=== PATIENT | male | born 1960 | race African-American/Black ===

== ENCOUNTER 2016-09-04 09:04 | Emergency (ER) | payer BC ==
[2005-03-20 19:04] VITALS: BP 172/107
[~2016-09-04] VITALS: Ht 188 cm; Wt 134.1 kg
[~2016-09-04 09:04] MED LIST: CEPHALEXIN500 M1 PO; HCTZ 25MG25 MG PO; INSULIN 70/3100 U/ML IJ; NEW B/P MED; NORCO 325 MG-51 TAB PO; NORVASC 10MG10 MG PO; NOVOLIN 70/30 710 ML SQ; PHENERGAN 25 TA25 MG PO
[2016-09-04 09:11] VITALS: TEMP 97.7
[2016-09-04 09:35] LABS: BASO % 0.6 % (0.0-2.0); EOS # 0.2 (0.0-0.7); EOS % 2.9 % (0-4.0); GRAN # 2.9 (1.4-6.5); GRAN % 45.1 % (42.2-75.2); HEMATOCRIT 45.8 % (42.0-52.0); HEMOGLOBIN 14.9 g/dl (13.5-18.0); LYMPH # 2.3 (1.2-3.4); LYMPH % 35.8 % (20.0-51.0); MEAN CELL VOLUME 80 fl (80.0-100.0); MEAN CORPUSCULAR HEMOGLOBIN 26 pg (27.0-31.0); MEAN CORPUSCULAR HGB CONC 33 g/dl (33.0-37.0); MEAN PLATELET VOLUME 9.5 fl (7.4-10.4); PLATELET COUNT 354 K/mm3 (130-400); RED BLOOD COUNT 5.74 M/mm3 (4.20-5.60); REDCELL DISTRIBUTION WIDTH-CV 13.5 % (11.5-14.5); WHITE BLOOD COUNT 6.5 K/mm3 (4.8-10.8)
[2016-09-04 09:41] LABS: ADJUSTED CALCIUM 10.1 mg/dL (8.4-10.2); BILIRUBIN,TOTAL 1.1 mg/dL (0.0-1.0); CALCIUM 10.1 mg/dL (8.4-10.2); CREATININE, serum 1.82 mg/dL (0.66-1.25); MAGNESIUM 1.7 mg/dL (1.6-2.3); PHOSPHOROUS 4.4 mg/dL (2.5-4.5); POTASSIUM 3.7 mmol/L (3.4-5.0); TOTAL PROTEIN 7.9 gm/dL (6.4-8.2)
[2016-09-04] MEDS ORDERED: ANTIVERT 25MG25 MG PO (09:50)
[2016-09-04] MEDS ORDERED: HCTZ 25MG TAB25 MG PO (09:52)
[2016-09-04] MEDS ORDERED: PREDNISONE20 MG PO (14:28)
[2016-09-04] MEDS ORDERED: VALTREX1 GM PO (14:28)
[2016-09-04 15:10] VITALS: BP 125/96; PULSE 81
[2016-09-07 12:44] LABS: ANGIOTENSIN CONVERTING ENZYME <5 U/L (8 - 53)
== END 2016-09-04 15:12 | disposition home or self-care (01) ==
LOC: COL.ER 09:04
PROVIDERS: Emergency Medicine
DX: G51.0 Bell's palsy (principal); E11.9 Type 2 diabetes mellitus without complications; I10 Essential (primary) hypertension; Z79.4 Long term (current) use of insulin; N28.9 Disorder of kidney and ureter, unspecified
CPT/HCPCS: J7030; J7512

== ENCOUNTER → 2017-09-27 | Outpatient (CLI) | payer BC ==
[~2017-09-27] MED LIST changes: +ANTIVERT 25MG25 MG PO; +HCTZ 25MG TAB25 MG PO; +PREDNISONE20 MG PO; +VALTREX1 GM PO
== END ==
LOC: COL.RAD 09:18
DX: N18.3 Chronic kidney disease, stage 3 (moderate) (principal)

== ENCOUNTER 2018-11-16 20:55 | Emergency (ER) | payer BC ==
[2005-03-20 19:04] VITALS: BP 172/107
[~2018-11-16] VITALS: Ht 185.4 cm; Wt 140.9 kg
[2018-11-16 21:05] VITALS: TEMP 97.9
[2018-11-16 21:36] LABS: BASO % 0.2 % (0.0-2.0); EOS # 0.1 (0.0-0.7); GRAN # 10.4 (1.4-6.5); GRAN % 86.4 % (42.2-75.2); HEMATOCRIT 40.2 % (42.0-52.0); LYMPH # 0.7 (1.2-3.4); LYMPH % 5.4 % (20.0-51.0); MEAN CELL VOLUME 83 fl (80.0-100.0); MEAN CORPUSCULAR HEMOGLOBIN 27 pg (27.0-31.0); MEAN CORPUSCULAR HGB CONC 32 g/dl (33.0-37.0); MEAN PLATELET VOLUME 9.8 fl (7.4-10.4); MONO # 0.8 (0.1-0.6); MONO % 6.5 % (1.7-9.3); PLATELET COUNT 275 K/mm3 (130-400); RED BLOOD COUNT 4.85 M/mm3 (4.20-5.60); REDCELL DISTRIBUTION WIDTH-CV 14.5 % (11.5-14.5)
[2018-11-16] MEDS ORDERED: APRESOLINE50 MG PO (21:43)
[2018-11-16] MEDS ORDERED: LASIX 20MG TABL20 MG PO (21:43)
[2018-11-16] MEDS ORDERED: HYTRIN 5MG C5 MG/CAP PO (21:44)
[2018-11-16] MEDS ORDERED: TOPROL XL 50MG50 MG PO (21:46)
[2018-11-16 21:48] LABS: ALANINE AMINOTRANSFERASE 24 U/L (21-72); ALBUMIN 4.2 gm/dL (3.5-5.0); ALKALINE PHOSPHATASE 107 U/L (50-136); ANION GAP 10 mmol/L (7-16); AST,SGOT 26 U/L (15-37); BILIRUBIN,TOTAL 0.7 mg/dL (0.0-1.0); BLOOD UREA NITROGEN 29 mg/dL (9-20); C-REACTIVE PROTEIN 0.7 mg/dL (0.0-0.9); CARBON DIOXIDE 25 mmol/L (22-30); CHLORIDE 103 mmol/L (98-107); CREATININE, serum 1.82 (0.66-1.25); GLUCOSE 214 mg/dL (74-106); LIPASE 79 U/L (23-300); POTASSIUM 3.7 mmol/L (3.4-5.0); SODIUM 139 mmol/L (137-145); TOTAL PROTEIN 7.9 gm/dL (6.4-8.2)
[2018-11-16 22:03] LABS: TROPONIN-I < 0.012 ng/mL (0.000-0.035)
[2018-11-16 22:36] LABS: COLLECTION METHOD CLEAN CATCH
[2018-11-16 22:42] LABS: MUCOUS Present /lpf; PH 7 (5-8); SQUAMOUS EPITHELIAL 0-2 /hpf; URINE APPEARANCE Clear; URINE BACTERIA Rare /hpf; URINE BILIRUBIN Negative (NEGATIVE); URINE BLOOD 1+ (NEGATIVE); URINE COLOR Straw; URINE GLUCOSE 3+ (NEGATIVE); URINE KETONE Trace (NEGATIVE); URINE LEUKOCYTE ESTERASE Negative (NEGATIVE); URINE NITRATE Negative (NEGATIVE); URINE PROTEIN(semi-quant) 2+ (NEGATIVE); URINE UROBILINOGEN Negative (NEGATIVE)
[2018-11-16] MEDS ORDERED: PHENERGAN 25 TA25 MG PO (23:51)
[2018-11-17 00:30] VITALS: BP 144/80; PULSE 100
== END 2018-11-17 00:30 | disposition home or self-care (01) ==
LOC: COL.ER 20:55
PROVIDERS: Emergency Medicine
DX: R11.2 Nausea with vomiting, unspecified (principal); R19.7 Diarrhea, unspecified; I12.9 Hypertensive chronic kidney disease with stage 1 through stage 4 chronic kidney disease, or unspecified chronic kidney disease; E11.22 Type 2 diabetes mellitus with diabetic chronic kidney disease; N18.9 Chronic kidney disease, unspecified; Z87.442 Personal history of urinary calculi; Z79.4 Long term (current) use of insulin
CPT/HCPCS: J1170; J2405; J2550; J7030

== ENCOUNTER 2020-09-22 03:32 | Inpatient (IN) | payer BC ==
[2020-09-22] VITALS (10 sets, daily range): BP systolic 158–197; BP diastolic 89–103; PULSE 83–105; TEMP 97.7–99.2
[~2020-09-22] VITALS: Ht 2.5 cm; Wt 138.6 kg
[~2020-09-22 03:32] MED LIST changes: +APRESOLINE50 MG PO; +HYTRIN 5MG C5 MG/CAP PO; +LASIX 20MG TABL20 MG PO; +TOPROL XL 50MG50 MG PO
[2020-09-22 04:13] LABS: BASO # 0.1 (0.0-0.2); BASO % 0.7 % (0.0-2.0); EOS # 0.2 (0.0-0.7); EOS % 1.9 % (0-4.0); GRAN # 5.1 (1.4-6.5); GRAN % 58.6 % (42.2-75.2); HEMATOCRIT 35.9 % (42.0-52.0); HEMOGLOBIN 11.3 g/dl (13.5-18.0); LYMPH # 2.5 (1.2-3.4); LYMPH % 28.8 % (20.0-51.0); MEAN CELL VOLUME 84 fl (80.0-100.0); MEAN CORPUSCULAR HEMOGLOBIN 26 pg (27.0-31.0); MEAN CORPUSCULAR HGB CONC 32 g/dl (33.0-37.0); MEAN PLATELET VOLUME 9.7 fl (7.4-10.4); MONO # 0.9 (0.1-0.6); MONO % 9.8 % (1.7-9.3); PLATELET COUNT 336 K/mm3 (130-400); RED BLOOD COUNT 4.29 M/mm3 (4.20-5.60); REDCELL DISTRIBUTION WIDTH-CV 14.4 % (11.5-14.5)
[2020-09-22 04:15] LABS: PROTHROMBIN TIME 10.7 SECONDS (9.7-12.8)
[2020-09-22 04:18] LABS: PARTIAL THROMBOPLASTIN TIME 34.7 SECONDS (26.0-37.0)
[2020-09-22 04:22] LABS: ALANINE AMINOTRANSFERASE 21 U/L (4-49); ALBUMIN 4.2 gm/dL (3.5-5.0); ALKALINE PHOSPHATASE 76 U/L (50-136); ANION GAP 11 mmol/L (7-16); AST,SGOT 29 U/L (15-37); BILIRUBIN,TOTAL 0.4 mg/dL (0.0-1.0); BLOOD UREA NITROGEN 55 mg/dL (9-20); CALCIUM 9.6 mg/dL (8.4-10.2); CARBON DIOXIDE 27 mmol/L (22-30); CHLORIDE 102 mmol/L (98-107); CREATININE, serum 3.38 (0.66-1.25); GLUCOSE 112 mg/dL (74-106); POTASSIUM 3.6 mmol/L (3.4-5.0); SODIUM 140 mmol/L (137-145); TOTAL PROTEIN 7.5 gm/dL (6.4-8.2)
[2020-09-22 04:34] LABS: TROPONIN-I < 0.012 ng/mL (0.000-0.035)
[2020-09-22] MEDS ORDERED: DIPROLENE AF GEL15GM TP (05:11)
[2020-09-22] MEDS ORDERED: NORVASC 10MG10 MG PO (05:11)
[2020-09-22] MEDS ORDERED: DUOBRII 0.01%-100 GM TP (05:12)
[2020-09-22] MEDS ORDERED: NORCO 325 MG-51 TAB PO (05:13)
[2020-09-22] MEDS ORDERED: APRESOLINE50 MG PO (05:13)
[2020-09-22] MEDS ORDERED: PRINZIDE 25 MG-1 TAB PO (05:14)
[2020-09-22] MEDS ORDERED: ROBAXIN 50500 MG/TAB PO (05:16)
[2020-09-22] MEDS ORDERED: IMITREX50 MG PO (05:17)
[2020-09-22] MEDS ORDERED: OTEZLA PO ×2 (05:17→06:05)
[2020-09-22] MEDS ORDERED: NOVOLIN 70/30 710 ML SQ (05:17)
[2020-09-22] MEDS ORDERED: LASIX 20MG TABL20 MG PO (06:03)
--- NOTE | 2020-09-22 07:00 | NUR ---
PT TEARFUL ABOUT CVA, PT HAVING TROUBLE GETTING OUT SOME WORDS, PT HAS R SIDED FACIAL DROOP, R SIDED WEAKNESS, PT AOX4, ASSESSMENT PERFORMED, NPO UNTIL SPEECH ASSESSMENT, NO OTHER NEEDS
[2020-09-22 08:32] LABS: MAGNESIUM 2.4 mg/dL (1.6-2.3); PHOSPHOROUS 5.1 mg/dL (2.5-4.5)
--- NOTE | 2020-09-22 09:18 | NUR ---
BRAYDON NOTIFIED OF NEPHROLOGY CONSULT
--- NOTE | 2020-09-22 10:04 | NUR ---
PT APPEARS TO HAVE MORE ISSUES WITH SPEECH BUT PHYSICAL STRENGTH IS THE SAME.
--- NOTE | 2020-09-22 10:22 | NUR ---
NOTIFIED DESTINI SAMPSON THAT PT SPEECH IS MORE SLURRED DURING CONVERSATION, STILL AOX4
--- NOTE | 2020-09-22 10:25 | NUR ---
Initial visit; Patient thanked Tube Blower for looking in on him and keeping him in Tube Blower's prayers.
[2020-09-22 10:37] LABS: COLLECTION METHOD CLEAN CATCH
[2020-09-22 10:44] LABS: PH 6 (5-8); SQUAMOUS EPITHELIAL None Seen /hpf; URINE APPEARANCE Clear; URINE BACTERIA None Seen /hpf; URINE BILIRUBIN Negative (NEGATIVE); URINE BLOOD Negative (NEGATIVE); URINE COLOR Straw; URINE GLUCOSE Negative (NEGATIVE); URINE KETONE Negative (NEGATIVE); URINE LEUKOCYTE ESTERASE Negative (NEGATIVE); URINE NITRATE Negative (NEGATIVE); URINE PROTEIN(semi-quant) 2+ (NEGATIVE); URINE RBC 0-2 /hpf; URINE UROBILINOGEN Negative (NEGATIVE)
[2020-09-22 10:47] LABS: BASO % 0.6 % (0.0-2.0); EOS # 0.1 (0.0-0.7); EOS % 0.9 % (0-4.0); GRAN # 4.8 (1.4-6.5); GRAN % 69.6 % (42.2-75.2); HEMOGLOBIN 10.8 g/dl (13.5-18.0); LYMPH # 1.4 (1.2-3.4); LYMPH % 19.8 % (20.0-51.0); MEAN CELL VOLUME 83 fl (80.0-100.0); MEAN CORPUSCULAR HEMOGLOBIN 27 pg (27.0-31.0); MEAN CORPUSCULAR HGB CONC 32 g/dl (33.0-37.0); MEAN PLATELET VOLUME 9.3 fl (7.4-10.4); MONO # 0.6 (0.1-0.6); MONO % 8.8 % (1.7-9.3); PLATELET COUNT 331 K/mm3 (130-400); RED BLOOD COUNT 4.08 M/mm3 (4.20-5.60); REDCELL DISTRIBUTION WIDTH-CV 14.2 % (11.5-14.5)
[2020-09-22 10:48] LABS: HEMATOCRIT 33.8 % (42.0-52.0)
--- NOTE | 2020-09-22 10:56 | NUR ---
PT TAKEN DOWN FOR MRI
--- NOTE | 2020-09-22 10:57 | NUR ---
RECIEVED PT MED FROM PT AND PLACED IT IN BAG WITH PT LABEL AND PLACED IN MED ROOM.
[2020-09-22 10:58] LABS: BILIRUBIN,TOTAL 0.5 mg/dL (0.0-1.0); CALCIUM 9.6 mg/dL (8.4-10.2); CREATININE, serum 3.06 (0.66-1.25); POTASSIUM 3.8 mmol/L (3.4-5.0); TOTAL PROTEIN 7.3 gm/dL (6.4-8.2)
--- NOTE | 2020-09-22 11:34 | NUR ---
PT RETURNED FROM MRI, NEURO CHECK PERFORMED,
--- NOTE | 2020-09-22 11:45 | NUR ---
RECIEVED CALL FROM RADIOLOGIST PT WAS POSITIVE FOR AN ACUTE STROKE, NOTIFIED ADRIÁN DUMONT
[2020-09-22] MEDS ORDERED: HUMULIN 70/3100 U/M1 SQ (11:54)
[2020-09-22] MEDS ORDERED: HYTRIN 5MG C5 MG/CAP PO (11:56)
--- NOTE | 2020-09-22 12:26 | NUR ---
PT REPORTING HE FEELS LIKE HE IS HAVING INCREASING WEAKNESS IN R PODIATRY ASSISTANT BUT WHEN SQUEEZING MY FINGERS IT DOES NOT FEEL LIKE THERE HAS BEEN A CHANGE SINCE OTHER NEURO CHECKS.
--- NOTE | 2020-09-22 13:29 | NUR ---
DR. MERCEDES AND ADRIÁN NOTIFIED OF NEW CHANGES WITH PT, PT HAS DEC MOVEMENT IN R ARM, BUILDING INSPECTOR WEAKER THAN IN AM, UNABLE TO TOUCH FINGERS TO THUMB, R ARM HAS SOME EFFORT AGAINST GRAVITY BUT UNABLE TO RAISE ARM ON HIS OWN
--- NOTE | 2020-09-22 14:03 | NUR ---
CT NOTIFIED OF STAT CT, SHE WAS CONCERNED ABOUT CREATININE, CALLED DR. MERCEDES BACK TO CONFIRM THAT HE WANTED THE CONTRAST, HE IS TRYING TO CONTACT DR. MARTINEZ BUT KU SAID SCANS WERE MORE IMPORTANT AT THIS TIME. PHYSICIAN WILL CALL ME BACK WITH FOR SURE ANSWER IN 5-10 MINUTES THEN WILL RETURN CALL TO CT.
--- NOTE | 2020-09-22 14:35 | NUR ---
Clerk Telegraph Service met with patient and his , Filomena (ph#[phone]) to discuss discharge planning. Patient lives in [place] with his and sees Dr. Lomeli for primary care. Patient obtains medications from [facility] with no difficulties and before his stroke, he did not use any DME. Patient is normally independent with ADLS. SW reviewed PT/OT recommendation for IPR. Patient and Filomena are open to having referral sent, but Filomena is worried about insurance coverage. Patient does not have Advance Directives but was interested in completing DPOA-HC. SW assisted patient in completing DPOA-HC and patient chose to designate his , Filomena and his daughter, Aure. ADAM and ETEHL Parks witnessed patient signature. ADAM provided original and copies to patient then placed copy in patient's chart. ADAM contacted REGINA Valdez Director to give referral and SW will continue to follow.
--- NOTE | 2020-09-22 16:20 | NUR ---
CALLED DR. MERCEDES TO ADVANCE DIET, HE SAID IT WAS FINE TO ADVANCE PER SPEECH RECOMMENDATIONS.
--- NOTE | 2020-09-22 17:21 | NUR ---
NOTIFIED DR. MERCEDES THAT HE CANT RN GYNECOLOGY WITH R HAND, HE SAID IT WAS TO BE EXPECTED IN NEXT 24-48 HOURS. PT STILL SLURRING SPEECH, PT NEEDS ASSISTANCE WITH URINAL, EDUCATED PT TO CALL, IN ROOM HELPED HIM CALL DIETARY FOR DINNER AND BREAKFAST, NECTAR THICK LIQUID AT BEDSIDE, CALL LIGHT ON L SIDE OF PATIENT, PT APPEARS EMBARASSED BY IDEA OF BEDPAN FOR A BM SINCE VERY WEAK
--- NOTE | 2020-09-22 20:00 | NUR ---
PATIENT WAS RECEIVED IN THE BOBBY FAIR IN BED.ASSESSMENT DONE,MEDS GIVEN.DENIES PAIN.NO NEEDS AT THIS TIME.
[2020-09-23] VITALS (15 sets, daily range): BP systolic 184–220; BP diastolic 82–124; PULSE 87–104; TEMP 97.8–98.6
--- NOTE | 2020-09-23 05:56 | NUR ---
PATIENT HAS SLEPT WELL AT NIGHT.ON A STROKE SCALE NOTHING HAS CHANGED FROM YESTERDAY'S ASSESSMENT.HAS WEAKNESS ON THE RIGHT SIDE AND FACIAL DROOPING.HE IS AOX4.IVFS ON GOOD PROGRESS.DENIES PAIN.NO OTHER NEEDS AT THIS TIME.
[2020-09-23 07:08] LABS: BASO % 0.5 % (0.0-2.0); EOS # 0.1 (0.0-0.7); EOS % 0.7 % (0-4.0); GRAN % 68.8 % (42.2-75.2); LYMPH # 1.6 (1.2-3.4); LYMPH % 21.6 % (20.0-51.0); MEAN CELL VOLUME 83 fl (80.0-100.0); MEAN CORPUSCULAR HEMOGLOBIN 26 pg (27.0-31.0); MEAN CORPUSCULAR HGB CONC 32 g/dl (33.0-37.0); MEAN PLATELET VOLUME 10.1 fl (7.4-10.4); MONO # 0.6 (0.1-0.6); MONO % 8.1 % (1.7-9.3); PLATELET COUNT 350 K/mm3 (130-400); RED BLOOD COUNT 4.16 M/mm3 (4.20-5.60); REDCELL DISTRIBUTION WIDTH-CV 14.5 % (11.5-14.5)
[2020-09-23 07:33] LABS: C-REACTIVE PROTEIN 0.7 mg/dL (0.0-0.9); CALCIUM 9.5 mg/dL (8.4-10.2); CHOLESTEROL RISK RATIO 3.1; CREATININE, serum 2.89 (0.66-1.25); POTASSIUM 3.8 mmol/L (3.4-5.0)
[2020-09-23 07:39] LABS: HEMATOCRIT 34.7 % (42.0-52.0)
--- NOTE | 2020-09-23 08:00 | NUR ---
PT AOX4, CANNOT MOVE R ARM, BP HIGH, STROKE SCALE PERFORMED, MEDICATIONS GIVEN, PT SWALLOWED WELL BUT GETS SOB AFTERWARDS. SPEECH ASSESSING AGAIN TODAY, PT SPEECH IS STILL SLURRED, R SIDED DROOP, PT TEARFUL ABOUT NOT BEING ABLE TO USE R ARM, NO OTHER NEEDS
--- NOTE | 2020-09-23 08:58 | NUR ---
UPDATED JAI GEORGES ON INC BP THROUGHT THE NIGHT AND IN AM AND ABOUT HIS SOB WITH SLEEPING.
--- NOTE | 2020-09-23 17:24 | NUR ---
PT STROKE SYMPTOMS STABLE THROUGHOUT DAY, ABLE TO RAISE R ARM BUT NOT JANITORIAL SERVICES SUPERVISOR WITH IT, MANNITOL DOSED X2 AND EDUCATED ON ITS PURPOSE, SECOND MRI DONE, PT IN ROOM, PROVIDED BED BATH AND HELPED PT BRUSH HIS TEETH, VITALS CHANGED TO Q4 PER PHYSICIAN ORDER, BS NOW ACHS PER PHSYICIAN ORDER, PT REPORTS GREATER STRENGTH IN LOWER EXTREMITIES, WALKED FARTHER WITH PT TODAY, SPEECH STILL RECOMMENDING NECTAR THICK LIQUIDS THROUGH THE WEEKEND. NO OTHER NEEDS AT THIS TIME.
--- NOTE | 2020-09-23 17:59 | NUR ---
PT ACCIDENTALLY PULLED OUT IV TRANSFERRING BACK TO BED. 20G STARTED IN RFA.
--- NOTE | 2020-09-23 18:27 | NUR ---
CALLED TO GET CPAP ORDER FROM [facility]LE[facility] GEORGES. PT EDUCATED ON PURPOSE OF CPAP AND HOW IT WORKS.
--- NOTE | 2020-09-23 20:15 | NUR ---
Pt currently resting in bed. Pt did pull his IV out by mistake. Pt blood pressure is currently 207/110. Will monitor blood pressure pt does have PRN medication but will give if numbers increase to the parameters medication will be given. Pt has is call light within reach and his bed is in lowest position.
--- NOTE | 2020-09-23 22:23 | NUR ---
This RT discussed CPAP with the patient. Explained the mask and settings. Pt states he has never had a sleep study and is refusing CPAP at this time. This RT encouraged that the patient look into getting an Overnight Polysomnograpy test on OP basis. Patient was also told that at any time he can call RT for intervention as ordered. Nurse was in the room and notified. RT to continue to monitor and evaluate patient.
[2020-09-24] VITALS (8 sets, daily range): BP systolic 157–217; BP diastolic 95–124; PULSE 87–101; TEMP 97.4–98.9
--- NOTE | 2020-09-24 01:49 | NUR ---
Pt is currently sleeping in bed. Pt did seem to be very restless before he received his night medications. Pt does have time where it sounds like he is not breathing well. But his oxygen is within normal limits. I have been closelsy monitoring pt. Respiratory therapy said she did not feel comfort putting pt on CPAP if he hadn't never been on a CPAP before. She wanted to be notified if I wanted her to check on him or noticed something abnormal. Pt has his call light within reach and his bed is in lowest position.
--- NOTE | 2020-09-24 02:30 | NUR ---
Pt currently lying in bed. Pt had a hard time getting comfortable in bed. Pt began to get very emotional as he exlained to me how he was doing fine and all this happened to him. He stated that he was not in any pain it's just very hard for him to deal with not being able to move his right side the way he wants. I encouraged the pt to call us if he needs help with anything, that this is what we are here for to help. Pt did get better once I helped him get positioned in a comfortable position. Pt said that it started when he neeed to use the urinal and it was hard for him with using just one hand. He did end up wetting his pants which I think made him feel bad. Pt has his call light within reach.
--- NOTE | 2020-09-24 06:00 | NUR ---
Pt has been much better this morning. Pt has no complaints at all this morning. He has his call light within reach and his bed is in lowest position.
[2020-09-24 07:45] LABS: BASO % 0.3 % (0.0-2.0); EOS # 0.1 (0.0-0.7); EOS % 0.8 % (0-4.0); GRAN # 6.2 (1.4-6.5); GRAN % 71.3 % (42.2-75.2); LYMPH # 1.5 (1.2-3.4); LYMPH % 17.5 % (20.0-51.0); MEAN CELL VOLUME 82 fl (80.0-100.0); MEAN CORPUSCULAR HEMOGLOBIN 26 pg (27.0-31.0); MEAN CORPUSCULAR HGB CONC 31 g/dl (33.0-37.0); MEAN PLATELET VOLUME 9.8 fl (7.4-10.4); MONO # 0.9 (0.1-0.6); MONO % 9.9 % (1.7-9.3); PLATELET COUNT 336 K/mm3 (130-400); RED BLOOD COUNT 4.25 M/mm3 (4.20-5.60); REDCELL DISTRIBUTION WIDTH-CV 14.6 % (11.5-14.5)
[2020-09-24 07:52] LABS: CALCIUM 9.7 mg/dL (8.4-10.2); CREATININE, serum 2.87 (0.66-1.25); POTASSIUM 3.7 mmol/L (3.4-5.0)
--- NOTE | 2020-09-24 09:43 | NUR ---
Pt awake and alert upon entry, sitting in the recliner, no C/O pain at this time. Shift assessments complete, left Pt call light in reach, sitting in the recliner.
--- NOTE | 2020-09-24 22:20 | NUR ---
Pt resting in bed. Pt has his call light within reach and his bed is in lowest position.
--- NOTE | 2020-09-25 02:24 | NUR ---
Pt currently awake in bed talking on the phone. He did request fresh water at this time and was given fresh water. He has his call light within reach and his bed is in lowest position. He has his call light within reach. Throughout the night he used the urinal.
[2020-09-25 03:37] VITALS: BP 196/102; PULSE 86; TEMP 98.3
--- NOTE | 2020-09-25 06:39 | NUR ---
Pt back in bed. Pt has had two loose stools during the night. Pt was assisted with getting cleaned up. Pt has his call light within reach.
[2020-09-25 07:03] LABS: BASO % 0.4 % (0.0-2.0); EOS # 0.1 (0.0-0.7); EOS % 1.1 % (0-4.0); GRAN # 6.3 (1.4-6.5); HEMOGLOBIN 11.4 g/dl (13.5-18.0); LYMPH % 21.4 % (20.0-51.0); MEAN CELL VOLUME 85 fl (80.0-100.0); MEAN CORPUSCULAR HEMOGLOBIN 27 pg (27.0-31.0); MEAN CORPUSCULAR HGB CONC 32 g/dl (33.0-37.0); MEAN PLATELET VOLUME 9.7 fl (7.4-10.4); MONO # 0.9 (0.1-0.6); MONO % 9.8 % (1.7-9.3); PLATELET COUNT 340 K/mm3 (130-400); RED BLOOD COUNT 4.28 M/mm3 (4.20-5.60); REDCELL DISTRIBUTION WIDTH-CV 14.5 % (11.5-14.5)
[2020-09-25 07:04] LABS: HEMATOCRIT 36.2 % (42.0-52.0)
[2020-09-25 07:22] LABS: CALCIUM 9.7 mg/dL (8.4-10.2); CREATININE, serum 3.36 (0.66-1.25); POTASSIUM 3.7 mmol/L (3.4-5.0)
[2020-09-25 08:00] VITALS: BP 218/121; PULSE 105; TEMP 98.1
--- NOTE | 2020-09-25 09:40 | NUR ---
Pt napping upon entry to room, easily awakened. No C/O pain at this time. Shift assessments complete, left Pt call light in reach, bed in lowest position, alarm on.
[2020-09-25 11:59] VITALS: BP 189/118; PULSE 116; TEMP 98.3
[2020-09-25 17:15] VITALS: BP 187/93; PULSE 89; TEMP 97.6
[2020-09-25 19:37] VITALS: BP 152/94; PULSE 84; TEMP 98.6
--- NOTE | 2020-09-25 20:00 | NUR ---
PATIENT WAS RECEIVED IN THE BOBBY CALM,ASSESSMENT DONE DUE MEDS GIVEN.DENIES PAIN NO NEEDS AT THIA TIME
[2020-09-26 00:18] VITALS: BP 168/80; PULSE 80; TEMP 98.5
[2020-09-26 05:12] VITALS: BP 174/91; PULSE 83; TEMP 98.3
--- NOTE | 2020-09-26 05:22 | NUR ---
PATIENT HAD A CALM NIGHT.REPORTED TO HAVE PULLED OUT IV WHEN ASLEEP.IV ACCESS RESTARTED ON RF IV NS INFUSING WELL.NO CONCERNS AT THIS TIME.
[2020-09-26 06:42] LABS: BASO # 0.1 (0.0-0.2); BASO % 0.7 % (0.0-2.0); EOS # 0.2 (0.0-0.7); GRAN # 4.8 (1.4-6.5); GRAN % 62.9 % (42.2-75.2); HEMOGLOBIN 10.5 g/dl (13.5-18.0); LYMPH # 1.8 (1.2-3.4); LYMPH % 24.2 % (20.0-51.0); MEAN CELL VOLUME 84 fl (80.0-100.0); MEAN CORPUSCULAR HEMOGLOBIN 26 pg (27.0-31.0); MEAN CORPUSCULAR HGB CONC 31 g/dl (33.0-37.0); MEAN PLATELET VOLUME 9.7 fl (7.4-10.4); MONO # 0.8 (0.1-0.6); MONO % 10.1 % (1.7-9.3); PLATELET COUNT 324 K/mm3 (130-400); RED BLOOD COUNT 4.03 M/mm3 (4.20-5.60); REDCELL DISTRIBUTION WIDTH-CV 14.2 % (11.5-14.5)
[2020-09-26 06:52] LABS: CALCIUM 9.3 mg/dL (8.4-10.2); CREATININE, serum 3.81 (0.66-1.25); HEMATOCRIT 33.7 % (42.0-52.0); POTASSIUM 3.6 mmol/L (3.4-5.0)
--- NOTE | 2020-09-26 07:00 | NUR ---
Report with ETHEL Duke. Pt resting in bed with eyes closed, resp even and unlabored.
[2020-09-26 08:09] VITALS: BP 170/110; PULSE 88; TEMP 98.4
--- NOTE | 2020-09-26 08:45 | NUR ---
Assessment complete. Pt resting in bed after being cleaned from incontinent stool. Pt reports loose stools today and yesterday morning that have been urgent. Pt denies pain or other needs. Right upper ext weaker than left, no chief radiology at this time. Right lower ext with slight drift. IVF's infusing per orders through left forearm site without s/s of complications. No further needs reported. Call light in reach.
--- NOTE | 2020-09-26 12:48 | NUR ---
First visit from the associate professor of radiology. No needs right now.
[2020-09-26 12:52] VITALS: BP 152/74; PULSE 88; TEMP 98.5
--- NOTE | 2020-09-26 13:16 | NUR ---
IVF's stopped and disconnected to assist pt up to bathroom. Provider notified and provides order to discontinue fluids. Call light in reach.
--- NOTE | 2020-09-26 13:19 | NUR ---
Corporate Physical Security Supervisor spoke with Courtney, [facility] Director who advised she obtained insurance approval for patient to discharge to [facility] when ready. Patient will not discharge today.
[2020-09-26 15:58] VITALS: BP 162/88; PULSE 83; TEMP 97.6
--- NOTE | 2020-09-26 17:30 | NUR ---
Pt sitting up in chair to eat dinner, denies pain or needs at this time. Pt's visiting, denies needs as well. Call light in reach.
--- NOTE | 2020-09-26 19:00 | NUR ---
Report to ETHEL Duke. Pt still sitting up in chair, denies needs. Call light in reach. Chair alarm on.
[2020-09-26 20:00] VITALS: BP 161/84; PULSE 86; TEMP 98.5
--- NOTE | 2020-09-26 22:59 | NUR ---
PATIENT IS CALM IN THE ROOM.DUE MEDS GIVEN,ASSESSMENT DONE.DENIES PAIN.NO OTHER NEEDS AT THIS TIME.
[2020-09-27 00:45] VITALS: BP 176/89; PULSE 91; TEMP 98.5
[2020-09-27 04:55] VITALS: BP 155/96; PULSE 81; TEMP 97.7
--- NOTE | 2020-09-27 06:12 | NUR ---
PATIENT REMAINS FAIR IN BED ON ROOM AIR.PATIENT IS AOX4.DENIES PAIN.NO NEEDS AT THIS TIME
[2020-09-27 07:50] VITALS: BP 167/88; PULSE 93; TEMP 98.3
--- NOTE | 2020-09-27 08:26 | NUR ---
Assessment completed, alert/oriented, vital signs stable/ still a little HTN but improving, he denies pain or discomfort, he is regaining strength in his RLE but is still very weak with RUE, he has no movement of his hand/fingers at all but is able to slightly raise his arm up, right sided facial droop is still present and slurred speech showing some improvement, heart RRR, distal pulses are palpable, lungs CTA/ no resp.difficulty noted, [facility] morning meds given, denies other needs, plans for IPR transfer possibly today
[2020-09-27 09:23] LABS: CALCIUM 9.1 mg/dL (8.4-10.2); CREATININE, serum 3.58 (0.66-1.25); POTASSIUM 3.4 mmol/L (3.4-5.0)
--- NOTE | 2020-09-27 10:02 | NUR ---
Post Commander spoke with Courtney, IPR Director and patient to discharge to IPR today.
[2020-09-27] MEDS ORDERED: PLAVIX 75MG TAB75 MG PO (10:06)
[2020-09-27] MEDS ORDERED: LIPITOR 40MG TA40 MG PO (10:06)
[2020-09-27] MEDS ORDERED: APRESOLINE50 MG PO (10:06)
[2020-09-27] MEDS ORDERED: COREG 6.256.25 MG/TA PO (10:07)
[2020-09-27] MEDS ORDERED: ASPIRIN 81M81 MG/TA2 PO (10:07)
[2020-09-27] MEDS ORDERED: NOVLOG SQ (10:08)
[2020-09-27 12:11] VITALS: BP 147/82; PULSE 90; TEMP 97.9
[2020-09-27 15:31] VITALS: BP 147/82; PULSE 90; TEMP 97.9
--- NOTE | 2020-09-27 16:13 | NUR ---
Patient is being trasnferred to Inpatient Rehab, I have called and given report to recieving nurse ETHEL Goldsmith, will remove left arm IV site prior transporting patient to room 339 by wheelchair, present at time of discharge
== END 2020-09-27 16:14 | DRG 65 ==
LOC: COL.ER 03:32 → MEDICAL 05:26
PROVIDERS: Emergency Medicine; Nurse Practitioner Family; Physician Assistant; Psychiatry & Neurology Neurology; ADMIT Student in an Organized Health Care Education/Training Program
DX: I63.9 Cerebral infarction, unspecified (principal); G81.91 Hemiplegia, unspecified affecting right dominant side; N17.9 Acute kidney failure, unspecified; Z68.41 Body mass index [BMI] 40.0-44.9, adult; R47.1 Dysarthria and anarthria; I12.9 Hypertensive chronic kidney disease with stage 1 through stage 4 chronic kidney disease, or unspecified chronic kidney disease; E11.22 Type 2 diabetes mellitus with diabetic chronic kidney disease; E11.40 Type 2 diabetes mellitus with diabetic neuropathy, unspecified; G43.909 Migraine, unspecified, not intractable, without status migrainosus; R29.708 NIHSS score 8; E78.5 Hyperlipidemia, unspecified; G47.33 Obstructive sleep apnea (adult) (pediatric); E66.01 Morbid (severe) obesity due to excess calories; N18.32 Chronic kidney disease, stage 3b; Z79.4 Long term (current) use of insulin
CPT/HCPCS: 99223-AI; 99232-AI; 99233-AI; 99239; J1650; J7030; Q9967

== ENCOUNTER 2020-09-27 13:29 | Inpatient (IN) | payer BC, OTHER ==
[~2020-09-27] VITALS: Ht 182.9 cm; Wt 140.0 kg
[~2020-09-27 13:29] MED LIST changes: +ASPIRIN 81M81 MG/TA2 PO; +COREG 6.256.25 MG/TA PO; +DIPROLENE AF GEL15GM TP; +DUOBRII 0.01%-100 GM TP; +HUMULIN 70/3100 U/M1 SQ; +IMITREX50 MG PO; +LIPITOR 40MG TA40 MG PO; +NOVLOG SQ; +OTEZLA PO; +PLAVIX 75MG TAB75 MG PO; +PRINZIDE 25 MG-1 TAB PO; +ROBAXIN 50500 MG/TAB PO
[2020-09-27 17:43] VITALS: BP 171/96; PULSE 87; TEMP 98.5
--- NOTE | 2020-09-27 19:30 | NUR ---
RECEIVED CHANGE OF SHIFT REPORT FROM DAY SHIFT NURSE. BED ALARM ON.
--- NOTE | 2020-09-27 20:00 | NUR ---
OBSERVED RIGHT FACIAL DROOP WITH SOME SLURRED SPEECH THAT IS NOTICEABLE WITH RUSHED SPEECH. OBSERVED RIGHT FOOT DRAG WITH AMBULATION. OBSERVED RUE/HAND FLACCID WITH REPORTED SENSATIONS OF TOUCH THAT IS EQUAL PER PATIENT REPORTS. BED ALARM ON WHEN IN BED. DENIES CHEST PAIN/SHORTNESS OF BREATH. DENIES NUMBNESS/TINGLING TO EXTREMITIES AT THIS TIME. R HAND THERMAL SURFACING MACHINE OPERATOR ABSENT COMPARED TO LEFT HAND THERMAL SURFACING MACHINE OPERATOR/STRONG.
--- NOTE | 2020-09-27 20:13 | NUR ---
Patient arrived at 4:15 PM today to room 339. This nurse received report from ETHEL Rodriguez at [facility]. Patient had his IV to his left forearm removed upon admission to [facility]. Assessment was completed and patient signed admission paperwork with his wifes assistance. Patient takes pills whole with water needing to be reminded to turn his head to his right and then swallow. Patient has feeling to his RUE, but is not able to move it. Patient uses a walker or cane to ambulate and he is a max two assist with ambulation and transfers. He was incontinent of stool this morning, but not here at [facility]. This nurse reported off to night nurse.
--- NOTE | 2020-09-27 22:30 | NUR ---
PATIENT VOICES CONCERN REGARDING HAVING TOO MUCH SALIVA COLLECT AT THE BACK OF HIS THROAT WHEN HE IS RECLINED WITH HOB UP AT 30-45 DEGREES THAT IT KEEPS HIM FROM SLEEPING. AGREED TO TRY SELF ORAL SUCTIONING. SUCTION SET UP WITH PATIENT DEMONSTRATING CORRECT USE AND STATED "I'LL GIVE THIS A TRY". NO OTHER NEEDS REPORTED AT THIS TIME. BED ALARM ON.
[2020-09-28 05:00] VITALS: BP 176/90; PULSE 88; TEMP 98.2
[2020-09-28 11:33] VITALS: BP 148/85; PULSE 85
--- NOTE | 2020-09-28 14:59 | NUR ---
Patient resting in recliner at this time following therapies.
[2020-09-28 17:05] VITALS: BP 157/90; PULSE 87; TEMP 98.4
[2020-09-28 18:51] LABS: COLLECTION METHOD CLEAN CATCH
[2020-09-28 19:12] LABS: PH 5 (5-8); URINE APPEARANCE Hazy; URINE BACTERIA None Seen /hpf; URINE BILIRUBIN Negative (NEGATIVE); URINE BLOOD 3+ (NEGATIVE); URINE COLOR Yellow; URINE GLUCOSE 1+ (NEGATIVE); URINE KETONE Negative (NEGATIVE); URINE LEUKOCYTE ESTERASE Negative (NEGATIVE); URINE NITRATE Negative (NEGATIVE); URINE PROTEIN(semi-quant) 3+ (NEGATIVE); URINE RBC >50 /hpf; URINE UROBILINOGEN Negative (NEGATIVE)
--- NOTE | 2020-09-28 20:16 | NUR ---
Rolan Thapa in Speech therapy patient's BIMS was completed today.
--- NOTE | 2020-09-28 20:21 | NUR ---
Patient attended all therapies today. Patient denied any pain this morning or this afternoon. Patient reports having difficulty with phlegm built up in his throat when he sleeps. This was communicated to ST and Dr. Ansari and they requested that patient's head of bed stays at 30 degrees to help with this. Patient was also given a yonker to use for suctioning as needed. Dr. Ansari saw patient today see new orders for Heprin TID for VTE orders. This evening at 6:00 PM patient's reported that she was in with the patient when he urinated and then started having 10/10 pain to his penis. The pain then went away after about 5 minutes. Patient admitted that he was having some discomfort to his left abdominal area earlier today, but that he didn't think anything of it. He has a history of kidney stones. This nurse strained patients urine and did not find any sediment. This nurse called and spoke with DESTINI Birch see new orders in EMR. Patient's urine was sent out to lab and CT was completed this evening. Patient tolerated well. Patient currently resting in bed, call light in reach and bed alarm set. This nurse reported off to night nurse.
--- NOTE | 2020-09-28 22:00 | NUR ---
PT RETURNING FROM CT PER W/C. ASSISTED BACK TO BED. RT ARM FLACCID BUT HAS SENSATION. LT LEG WEAK. USES CANE. PT ADMITS TO OCCASIONAL LT FLANK PAIN BUT NONE RIGHT NOW. NOTIFIED CHARGE NURSE TO REQUEST START IV. NEW ORDER FOR ROCEPHIN FOR UTI.
--- NOTE | 2020-09-29 01:32 | NUR ---
IV TO LT HAND OCCLUDED. WILL BE RESTARTED BY BRIDGET CHAVEZ. GAVE NORCO 1TAB FOR LT FLANK PAIN. URINE STRAINED AND VISUALIZED BLOODY FLEX. NO STONE.
[2020-09-29 05:38] VITALS: BP 144/80; PULSE 90; TEMP 97.9
--- NOTE | 2020-09-29 09:45 | NUR ---
Several visit attempts; Foreign Exchange Position Clerk left a prayer card that offered 'Hope' and God's blessings.
--- NOTE | 2020-09-29 10:06 | NUR ---
PT SLEEPING IN BED AT BEDSIDE SHIFT REPORT. BED IN LOW, CALL LIGHT WITHIN REACH, BED ALARM ON.
--- NOTE | 2020-09-29 14:27 | NUR ---
The patient is new to [facility]. Wet Roaster met with the patient to complete intake. The patient lives in [place] with his , Filomena. The patient has a cane and walker. He is independent. The patient's PCP is Dr. Lomeli and he also sees Dr. Han. The patient has advanced directives in the EMR. After intake SW present the Team Conference note. The patient had no questions or concerns at this time. He was happy he could have a visitor.
[2020-09-29 16:31] VITALS: BP 157/87; PULSE 86; TEMP 98.1
--- NOTE | 2020-09-29 19:48 | NUR ---
PT ONLY REPORTS PAIN UPON URINATION, CT OF ABD SHOWED NO KINDEY STONE. DISCONTINUED STRAINING PT'S URINE. DR. LOERA CHANGED PT TO PO ABX AND DISCONTINUED IV ABX AND FLUIDS. ENCOURAGE PT TO CONTINUE DRINKING TO FLUSH KIDNEYS.
--- NOTE | 2020-09-29 21:11 | NUR ---
PT UP IN CHAIR WATCHING TV. STATES HE IS READY FOR BED. AIDES IN TO ASSIST TO BED. DENIES ANY C/O PAIN, SOA AT THIS TIME. CALL LIGHT IN REACH.
--- NOTE | 2020-09-29 23:00 | NUR ---
PT ASSESSMENT COMPLETE. STATES HE HAS A LITTLE BURNING WITH URINATION AND A SMALL AMOUNT OF BLOOD. NO BLOOD NOTICED IN URINAL AT THIS TIME. TAKES HIS HS MEDS WITHOUT DIFFICULTY. NORCO 5/325 GIVEN FOR GENERAL DISCOMFORT. SCD'S ARE ON BILAT. RUE UNABLE TO MOVE UNLESS HE HELPS WITH OTHER HAND. CALL LIGHT IN REACH. BED ALARM ON.
[2020-09-30 05:42] VITALS: BP 146/90; PULSE 93; TEMP 98.6
--- NOTE | 2020-09-30 06:53 | NUR ---
PT STILL DOZING. VS MONITORED. DENIES ANY C/O. REPORTS A GOOD NIGHT. CALL LIGHT IN REACH.
[2020-09-30 07:05] LABS: BASO % 0.5 % (0.0-2.0); EOS # 0.2 (0.0-0.7); EOS % 2.9 % (0-4.0); GRAN # 3.1 (1.4-6.5); GRAN % 56.3 % (42.2-75.2); HEMOGLOBIN 10.2 g/dl (13.5-18.0); LYMPH # 1.5 (1.2-3.4); LYMPH % 26.9 % (20.0-51.0); MEAN CELL VOLUME 84 fl (80.0-100.0); MEAN CORPUSCULAR HEMOGLOBIN 26 pg (27.0-31.0); MEAN CORPUSCULAR HGB CONC 31 g/dl (33.0-37.0); MEAN PLATELET VOLUME 9.6 fl (7.4-10.4); MONO # 0.7 (0.1-0.6); PLATELET COUNT 338 K/mm3 (130-400); RED BLOOD COUNT 3.92 M/mm3 (4.20-5.60); REDCELL DISTRIBUTION WIDTH-CV 13.9 % (11.5-14.5)
[2020-09-30 07:20] LABS: HEMATOCRIT 32.9 % (42.0-52.0)
[2020-09-30 07:22] LABS: CALCIUM 8.8 mg/dL (8.4-10.2); CREATININE, serum 3.15 (0.66-1.25); MAGNESIUM 2.2 mg/dL (1.6-2.3); POTASSIUM 3.5 mmol/L (3.4-5.0)
--- NOTE | 2020-09-30 09:15 | NUR ---
Follow-up visit; Patient thanked Operator Assistant I Cementing for leaving a prayer yesterday and stopping by again. Operator Assistant I Cementing wished Bobby well and offered God's blessings.
--- NOTE | 2020-09-30 09:19 | NUR ---
Patient sitting up in chair, he has completed his first round of therapy. He did well with breakfast. denies nausea. took am medication without problems. he denies needing pain medication. right upper extremity paralysis, he reports he has been moving his fingers, knows the importance in preventing contracture. Patient in positive spirits about therapy & regaining strength.
--- NOTE | 2020-09-30 10:16 | NUR ---
Patient sitting up in chair talking on phone, denies needs.
--- NOTE | 2020-09-30 13:22 | NUR ---
Admission QIM scores were reviewed by the team. Code of 3 chosen for oral hygiene was determined by team discussion to be the most usual performance before interventions for this patient during the assessment period. Code of 2 chosen for toilet hygiene was determined by team discussion to be the most usual performance for this patient during the assessment period. Code of 88 chosen for toileting transfers was determined by team discussion to be the most usual performance for this patient during the assessment period. Code of 6 chosen for sit to lying was determined by team discussion to be the most usual performance for this patient during the assessment period. Code of 2 for sit to stand was determined by team discussion to be the most usual performance for this patient during the assessment period. Code of 2 for chair/bed to chair transfers was determined by team discussion to be the most usual performance for this patient during the assessment period. Code of 3 chosen for walk 10 feet was determined by team discussion to be the most usual performance for this patient during the assessment period.--Courtney Cosby, PD
--- NOTE | 2020-09-30 13:52 | NUR ---
Patient did well with lunch. Denies needs. Continues with his after noon therapy sessions
--- NOTE | 2020-09-30 14:45 | NUR ---
Shelter Supervisor met with the patient to follow up before the weekend. The patient has no questions concerns at this time.
[2020-09-30 16:07] VITALS: BP 157/85; PULSE 85; TEMP 97.7
--- NOTE | 2020-09-30 16:19 | NUR ---
Patient sitting up in chair. New linens to bed. Complaints of new shoes causing him some discomfort. Tylenol for pain, Bp elevated, scheduled Bp med given. Chocolate ice cream as he waits on his dinner. He is expecting his to visit.
--- NOTE | 2020-09-30 16:44 | NUR ---
MEALS FOR TMRW ORDERED, PATIENT THANKFUL TO PROGRESS DIET.
--- NOTE | 2020-09-30 17:51 | NUR ---
Patient did well with dinner. His at bedside. Denies needs
--- NOTE | 2020-09-30 19:04 | NUR ---
Urinal emptied. Bedside report to Ira
--- NOTE | 2020-09-30 20:24 | NUR ---
PT IN RECLINER SITTING, A/O X4, C/O PAIN RATED AT A 2/10 IN BILATERAL FEET FROM NEW SHOES, JUST HURTS ON THE SIDE. PT DENIES NEEDING ANY PAIN MEDICATION. CALL LIGHT WITHIN REACH.
[2020-10-01 06:02] VITALS: BP 163/78; PULSE 92; TEMP 97.6
--- NOTE | 2020-10-01 06:49 | NUR ---
PT SLEPT/RESTED WELL THIS SHIFT, WITH NO CONCERNS OR ISSUES NOTED. CALL LIGHT WITHIN REACH AND BED ALARM ON.
--- NOTE | 2020-10-01 07:16 | NUR ---
PT SLEEPING IN BED AT BEDSIDE SHIFT REPORT. URINAL EMPTIED, BED IN LOW, CALL LIGHT WITHIN REACH.
[2020-10-01 16:24] VITALS: BP 165/85; PULSE 83; TEMP 97.7
--- NOTE | 2020-10-01 18:13 | NUR ---
PT DENIED PAIN TODAY, SAYS PAIN UPON URINATION HAS RESOLVED. PT SEEMED MORE STEADY WALKING TODAY THEN TWO DAYS AGO WHEN I ASSISTED. PT HAD M SF BM TODAY AFTER MIRALAX AND COLACE GIVEN.
--- NOTE | 2020-10-01 19:34 | NUR ---
PT SITTING IN CHAIR. AT BEDSIDE. DENIES ANY NEEDS AT THIS TIME. REPORT RECEIVED FROM DAY SHIFT NURSE. CALL LIGHT IN REACH.
--- NOTE | 2020-10-02 02:44 | NUR ---
SHIFT ASSESSMENT COMPLETE. PT CONTINUES TO SIT IN CHAIR WATCHING TV. STILL NEEDING SOME QUES TO REMEMBER TO TURN HEAD TO RIGHT AND TUCK CHIN. VOIDS PER URINAL AT BEDSIDE. PT HAS YAUNKERS SUCTION TIP ON BEDSIDE TABLE. TAKES PILLS WITHOUT DIFFICULTY. CALL LIGHT IN REACH. BEDSIDE TABLE WITHIN REACH. BED ALARM ON.
[2020-10-02 06:03] VITALS: BP 152/89; PULSE 80; TEMP 97.9
--- NOTE | 2020-10-02 07:11 | NUR ---
PT HAD A GOOD NIGHT. REQ AND GIVEN NORCO 5/325 X2 AT HS. REPORT GIVEN TO DAY SHIFT NURSE.
--- NOTE | 2020-10-02 10:30 | NUR ---
108 Feet, had to stop x4 due to right foot drop. Had to be cued to stop. Did not want to wear his brace on left foot. Does get short of breath when walking. Pt now sitting up in the chair.
[2020-10-02 16:45] VITALS: BP 155/88; PULSE 74; TEMP 97.8
--- NOTE | 2020-10-02 18:55 | NUR ---
RECEIVED CHANGE OF SHIFT REPORT FROM DAY SHIFT NURSE. CHAIR ALARM ON WHILE UP IN CHAIR.
[2020-10-03 05:58] VITALS: BP 149/86; PULSE 84; TEMP 98.1
--- NOTE | 2020-10-03 07:15 | NUR ---
CHANGE OF SHIFT REPORT GIVEN TO DAY SHIFT NURSEWILLIAM. BED ALARM ON.
--- NOTE | 2020-10-03 14:01 | NUR ---
ADAM received a phone call from the patient's , Filomena. Ange had questions about tentative plans and Medicaid. SW informed Filomena how d/c plans and equipment needs have not been determined yet. Plan is to re-eval the patient on Saturday. Filomena verbalized understanding. ADAM also educated her about Medicaid. Filomena was interested in getting the patient applied for Medicaid while here. ADAM consulted Financial Counselor, Jessica.
[2020-10-03 16:51] VITALS: BP 154/80; PULSE 88; TEMP 98.1
--- NOTE | 2020-10-03 18:30 | NUR ---
Patient has been doing well today. No complaints of pain or nausea. He has been eating most his meals. He had a bowel movement this evening. He needed some assistance with cleaning himself, he tried but was not able to do it himself. He sat up in the chair most the day. No other changes at this time. Call light within reach.
--- NOTE | 2020-10-03 19:00 | NUR ---
RECEIVED CHANGE OF SHIFT REPORT FROM DAY SHIFT NURSE. PATIENT UP IN CHAIR WITH CHAIR ALARM ON.
--- NOTE | 2020-10-03 20:00 | NUR ---
CONTINUES RUE WEAKNESS WITH NO SPONTANEOUS MOVEMENT TO RIGHT HAND FINGERS/HAND AT WRIST. DENIES CHEST PAIN/SHORTNESS OF BREATH. OBSERVED GAIT WITH SOME RIGHT FOOT DRAG. OBSERVED LEFT JIG BORE TOOL MAKER STRONGER THAN RIGHT HAND JIG BORE TOOL MAKER.
[2020-10-04 04:23] VITALS: BP 160/81; PULSE 89; TEMP 98.1
--- NOTE | 2020-10-04 07:42 | NUR ---
CHANGE OF SHIFT REPORT GIVEN TO DAY SHIFT NURSE, GOSIA DAVENPORT.
--- NOTE | 2020-10-04 10:29 | NUR ---
PT SLEEPING IN BED AT BEDSIDE SHIFT REPORT. PT DENIED PAIN THIS AM. LIME BOILER ASSISTED WITH GETTING DRESSED AND TO RECLINER FOR BREAKFAST.
[2020-10-04 16:40] VITALS: BP 172/83; PULSE 82; TEMP 98.3
--- NOTE | 2020-10-04 19:04 | NUR ---
RECEIVED CHANGE OF SHIFT REPORT FROM DAY SHIFT NURSE.
--- NOTE | 2020-10-04 20:00 | NUR ---
STILL HAS RUE FLACCIDITY DUE TO STROKE, HAS BEEN SWALLOWING THIN LIQUIDS WITH CHIN TUCK, TURNING HEAD TO SIDE TO SWALLOW PILLS WITH NO REPORTED PROBLEMS. UP WITH CANE HELD IN LEFT HAND AND AMBULATED WITH ASSIST X1 STAFF WITH GAIT BELT AND CANE USE FOR TRANSFERS. DENIES CHEST PAIN OR SHORTNESS OF BREATHE AT THIS TIME. STILL OBSERVED RIGHT LEG DRAG WITH AMBULATION IN ROOM.
[2020-10-05 05:33] VITALS: BP 168/81; PULSE 93; TEMP 98
--- NOTE | 2020-10-05 07:35 | NUR ---
CHANGE OF SHIFT REPORT GIVEN TO DAY SHIFT NURSE, LULI DAVENPORT.
--- NOTE | 2020-10-05 09:50 | NUR ---
Patient resting in recliner, call light in reach. Patient denies questions at this time.
--- NOTE | 2020-10-05 15:42 | NUR ---
ADAM met with the patient to present and review the IPR Team Conference Note. ADAM informed him how the team plans to re-eval him next Saturday and that they would like to schedule a patient/family meeting on Saturday. The patient was agreeable to the plan. ADAM then contacted the patient's , Filomena, and informed her of the team's recommendation. Filomena was agreeable to the plan and states that she can be here at 1300 on Saturday for the patient/family meeting. ADAM to inform IPR Director.
[2020-10-05 17:04] VITALS: BP 169/89; PULSE 82; TEMP 98.5
--- NOTE | 2020-10-05 19:45 | NUR ---
RECEIVED CHANGE OF SHIFT REPORT FROM DAY SHIFT NURSE. PATIENT UP IN CHAIR WITH CHAIR ALARM ON.
--- NOTE | 2020-10-05 19:48 | NUR ---
Patient attended all therapies today. Denied any pain. Denied any questions this shift. Patient did get some slight movement to his right arm this afternoon and this was reported to Dr. Ansari. Patient's visited with him earlier today. Patient continues on a regular diet and is tolerating it well. Reported off to night nurse.
--- NOTE | 2020-10-05 22:11 | NUR ---
PATIENT TRANSFERED FROM CHAIR TO BED, BED ALARM ON. OBSERVED GROSS MOTOR MOVEMENT TO RUE, NO MOVEMENT OF RIGHT HAND FINGERS ON COMMAND OBSERVED. DENIES CHEST PAIN/SHORTNESS OF BREATH. DENIES ANY PAIN OR NEEDS AT THIS TIME.
[2020-10-06 05:59] VITALS: BP 160/91; PULSE 86; TEMP 98.5
--- NOTE | 2020-10-06 07:10 | NUR ---
CHANGE OF SHIFT REPORT GIVEN TO DAY SHIFT NURSE, LULI DAVENPORT.
--- NOTE | 2020-10-06 09:37 | NUR ---
Follow-up; Patient out walking, [employer] offered encouragement and blessings.
--- NOTE | 2020-10-06 10:06 | NUR ---
Patient attending all therapies this morning. Denies pain or questions at this time. Patient was able to move his right wrist and hand to the side and back a few times this morning. Tolerating diet well. Uses call light appropriatly.
[2020-10-06 17:00] VITALS: BP 164/92; PULSE 77; TEMP 98.2
--- NOTE | 2020-10-06 20:26 | NUR ---
Patient continued all his therapies today. He has continued to get some movement to his hand and arm, but not to his fingers yet. Patient had a visit with his this afternoon. Patient is independent with eating requiring only touch assist with opening some items. Patient denies any questions at this time. Reported off to night nurse.
--- NOTE | 2020-10-06 21:00 | NUR ---
PT SITTING IN RECLINER. WATCHING TV. PLEASANT AND COOPERATIVE. RT SIDED WEAKNESS. ABLE TO MOVE RT ARM SOME BUT NOT HAND YET. DENIES PAIN. NO NEEDS AT THIS TIME. USE YAUNKERS SUCTION FOR EXCESSIVE MOUTH SECRETIONS. PT REPORT SECRETIONS MUCH BETTER SICE MUCINEX, FLONASE AND CLAITIN.
[2020-10-07 05:19] VITALS: BP 163/82; PULSE 97; TEMP 97.9
--- NOTE | 2020-10-07 06:22 | NUR ---
PT C/O RT SHOULDER PAIN. ELEVATED ON PILLOW. GAVE TYLENOL. SEE MAR. PT RELATED HE SLEPT WELL THROUGH THE NIGHT.
--- NOTE | 2020-10-07 07:57 | NUR ---
PT RESTING IN BED AT BEDSIDE SHIFT REPORT. PT REPORTS SHOULDER PAIN IN THE NIGHT IS BETTER AND SLEPT WELL LAST NIGHT. PT ASSISTED TO RECLINER THIS AM FOR .
--- NOTE | 2020-10-07 15:27 | NUR ---
The patient's left the signed Release of Information Forms with the patient's RN. There were a few lines that need initialed that were left blank. SW met with the patient to inform. The patient initialed the lines. SW contacted the patient's , Filomena, to inform. Filomena verbalized understanding and was agreement for the patient to intitial those lines. ADAM emailed the signed forms to Jessica with [employer]. The patient was watching TV when ADAM met with the patient. He states that he is doing well and did not have any other questions for SW.
[2020-10-07 17:03] VITALS: BP 160/84; PULSE 87; TEMP 98
--- NOTE | 2020-10-07 17:41 | NUR ---
PT HAS DENIED PAIN THIS SHIFT. WAS ABLE TO SHOW THIS NURSE AND OT THAT HE CAN MOVE THE POINTER AND MIDDLE FINGER ON RT HAND WHEN FOCUSES. OT ENCOURAGED HIM TO KEEP AT IT AND MAKE SURE TO STRETCH FINGERS BACK OUT AFTER CURLING THEM.
--- NOTE | 2020-10-07 21:00 | NUR ---
PT SITTING IN RECLINER. PT REPORTS WANTS TYLENOL AT BEDTIME FOR GENERALIZED ACHINESS. PT SPEECH STARTING TO IMPROVE. RT SIDE WEAKNESS. CALL LIGHT IN REACH. CHAIR ALARM SET.
[2020-10-08 04:16] VITALS: BP 182/90; PULSE 84; TEMP 98.2
--- NOTE | 2020-10-08 08:00 | NUR ---
Patient resting in bed eating breakfast. Was indpendent with his meal today. Patient denies any questions at this time. Call light in reach and bed alarm set. Will continue to monitor.
--- NOTE | 2020-10-08 11:36 | NUR ---
Patient was indpendent on his grooming this morning and was set up for upper dressing. Patient's linens were changed. He is currently resting in his recliner, call light in reach and bed alarm set. Patient denies any questions at this time. Will continue to monitor.
[2020-10-08 13:02] VITALS: BP 151/78
--- NOTE | 2020-10-08 15:30 | NUR ---
Food order discussed with patient for tomorrow's meals and order called in per this nurse.
[2020-10-08 16:18] VITALS: BP 164/80; PULSE 81; TEMP 97.6
[2020-10-09 06:17] VITALS: BP 153/79; PULSE 88; TEMP 98.7
--- NOTE | 2020-10-09 06:58 | NUR ---
Patient resting in bed, call light in reach and bed alarm set.
--- NOTE | 2020-10-09 09:15 | NUR ---
Patient set up for grooming this morning. Was touch assist with gaitbelt walking to the scale. Patient denies pain at this time.
[2020-10-09 16:44] VITALS: BP 157/82; PULSE 81; TEMP 97.9
--- NOTE | 2020-10-09 19:36 | NUR ---
Patient did his own grooming and dressing this morning with only set up for the dressing portion. Patient demonstrated how he puts on his own deoderant, using left hand to put under right arm pit, but then still needing to figure out how to put it on under his left arm pit with his left hand. He walked to the scale and then around the nurse station and back to his room for exercise today and then was stretching throught the day with his bilateral legs and right arm and hand. He was able to squeeze with his right hand late this afternoon. His stopped by to visit this evening. This nurse reported off to the night nurse.
--- NOTE | 2020-10-09 21:00 | NUR ---
PT SITTING UP IN RECLINER. CHEERFUL ABOUT HIS NEW ABILITY TO MOVE RT FINGERS. PT VERY MOTIVATED WITH IMPROVING. HAVING SOME MILD DISCOMFORT TO RT SHOULDER- SEE MAR FOR TYLENOL. CALL LIGHT IN REACH. BED ALARM SET.
[2020-10-10 05:46] VITALS: BP 161/80; PULSE 79; TEMP 97.8
--- NOTE | 2020-10-10 07:03 | NUR ---
PT SLEEPING IN BED AT BEDSIDE SHIFT REPORT.
--- NOTE | 2020-10-10 15:56 | NUR ---
SW met with the patient to follow up after the weekend. The patient was having a conservation, via [employer]. IPR Team meeting is now at 1300 on Saturday. SW discussed pushing the family meeting to 1330. The patient states that this works and he will tell his . SW contacted the patient's , Filomean, and she states that the meeting at 1330 will work.
[2020-10-10 16:47] VITALS: BP 155/75; PULSE 80; TEMP 97.7
--- NOTE | 2020-10-10 18:29 | NUR ---
PT DENIED PAIN THIS SHIFT. CONTINUES TO WORK HARD ON INCREASING MOVEMENT IN RUE. IS ABLE TO CURL ALL FINGERS AND MOVE AT THE ELBOW. ENCOURAGE PT TO TAKE PLENTY OF REST AND ELEVATE EXTREMITY WELL.
--- NOTE | 2020-10-10 20:19 | NUR ---
Patient sitting up in the chair and watching TV upon enter the room. Patient alert and oriented. Denies any pain or discomfort. No SOB or dyspnea. All sheduled meds given per MAR. Bilateral lower extremities swollen. Elevated both legs on the pillows. Call light within reach. Patient denies any needs at this time.
[2020-10-11 05:31] VITALS: BP 151/74; PULSE 73; TEMP 98.6
--- NOTE | 2020-10-11 06:55 | NUR ---
PT SLEEPING IN BED AT BEDSIDE SHIFT REPORT.
[2020-10-11 17:04] VITALS: BP 158/79; PULSE 80; TEMP 98.5
--- NOTE | 2020-10-11 20:00 | NUR ---
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 Assessment complete. VS stable. A&Ox3. Denies pain/nausea/shortness of breath. Sitting up in chair watching TV. Noted to have edema to bilat lower ext-+2. Assisted with reclining with pillow support. Plan of care discussed for this shift to include HS meds/calling for questions/concerns. Verbalizes understanding/denies needs. Call light in reach. Will monitor.
[2020-10-13 05:44] VITALS: BP 151/83; BP 174/93; PULSE 78; TEMP 97.7
--- NOTE | 2020-10-13 09:33 | NUR ---
SW attended a patient/family meeting. The patient , Filomena, was present. Also present was IPR Director, PT, OT, and ST. IPR Director started by explaining the purpose of the meeting. PT/OT/ST discussed the patient's progress so far. IPR Director informed the patient and how a tentative d/c date has been set for this Saturday, 10/14, with outpatient PT/OT/ST and how they recommend a cane. The patient and his would be interested in outpatient therapy at the [facility] on [address]. The patient's plans to get a cane. SW to schedule outpatient therapy appointments.
--- NOTE | 2020-10-13 09:53 | NUR ---
Patient working with Physical therapy at this time. Patient tolerated breakfast well this morning. Patient denies pain or questions. Discussed his goals about discharge with patient being very talkative and positive. Patient is independent in his room using his cane. He voiced excitement about what all he was able to accomplish by himself last night, such as getting ready for bed and getting dressed by himself this morning.
--- NOTE | 2020-10-13 09:58 | NUR ---
Patient is making appropriate decisions with ambulation. Using his cane when ambulating and showing that when he stands up he makes sure to have his balance before moving.
--- NOTE | 2020-10-13 14:47 | NUR ---
Patient will be discharging tomorrow and follow up appointments were made. See Discharge appointments.
--- NOTE | 2020-10-13 15:30 | NUR ---
ADAM met with the patient and presented and reviewed the IPR Team Conference Note with him. He had no questions or concerns for d/c tomorrow. ADAM attempted to contact [facility] on [place] to schedule the outpatient PT/OT/ST appointments. ADAM left them a voicemail.
--- NOTE | 2020-10-13 16:16 | NUR ---
[facility] returned ADAM's phone call. ADAM secured the patient an outpatient PT appointment on 10/21 at 1430, OT on 10/21 at 1530, and ST on 10/26 at 1430. ADAM provided the appointment dates to the patient's RN.
[2020-10-13 17:49] VITALS: BP 146/64; PULSE 80; TEMP 98.2
--- NOTE | 2020-10-13 20:12 | NUR ---
Patient attended all therapies today. Follow up appointments were made for patient. See discharge appointments. Patient's stopped by this afternoon and started taking some of his misc. supplies home with her. Reported off to night nurse.
--- NOTE | 2020-10-13 21:00 | NUR ---
PT SITTING IN RECLINER. CHEERFUL. DC TOMORROW. PT REPORT THOUGHT HE MOVED HIS THUMB TODAY BUT WASNT SURE. TYLENOL FOR GENERAL ACHES. MOD I IN ROOM. DENIES OTHER NEEDS. CALL LIGHT IN REACH.
[2020-10-14 05:29] VITALS: BP 156/77; PULSE 96; TEMP 97.8
--- NOTE | 2020-10-14 07:13 | NUR ---
PT SLEEPING IN BED AT BEDSIDE SHIFT REPORT. NO COMPLAINTS OVER NIGHT, IS MOD-I IN ROOM WITH CANE. DISCHARGING TODAY.
[2020-10-14] MEDS ORDERED: LIPITOR 40MG TA40 MG PO (08:51)
[2020-10-14] MEDS ORDERED: APRESOLINE50 MG PO (08:51)
[2020-10-14] MEDS ORDERED: PLAVIX 75MG TAB75 MG PO (08:51)
[2020-10-14] MEDS ORDERED: HYTRIN 5MG C5 MG/CAP PO (08:51)
[2020-10-14] MEDS ORDERED: COREG12.5 MG PO (08:52)
[2020-10-14] MEDS ORDERED: NORVASC 10MG10 MG PO (08:52)
[2020-10-14] MEDS ORDERED: ZESTRIL 10MG10 MG PO (08:53)
[2020-10-14] MEDS ORDERED: TYLENOL 325MG325 MG PO (08:53)
[2020-10-14] MEDS ORDERED: FLONASE NASAL S16 GM NS (08:53)
--- NOTE | 2020-10-14 09:42 | NUR ---
The patient is to discharge back home with his today, 10/14, with outpatient PT/OT/ST at [facility] on [place]. SW faxed the patient's d/c orders to [facility] [place]. No additional needs at this time.
[2020-10-14] MEDS ORDERED: NOVLOG SQ (12:24)
--- NOTE | 2020-10-14 15:40 | NUR ---
PT DENIED ANY PAIN THIS SHIFT, WAS MOD-I IN ROOM TODAY. PT HEALTH SUMMARY, DISCHARGE SUMMARY, AND HOME MEDS PRINTED AND REVIEWED WITH PT AND . STRESSED IMPORTANCE OF F/U APPTS. REVIEWED MEDICATIONS, ALL SENT TO THE PHARMACY. 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 PT TRANSPORTED VIA WC BY [employer] AND [employer] [facility] [facility]. PT AND DENIED QUESTIONS.
== END 2020-10-14 14:00 | disposition home health service (06) | DRG 57 ==
LOC: IMCU 13:29
PROVIDERS: Nurse Practitioner Family; ADMIT Internal Medicine
DX: I69.351 Hemiplegia and hemiparesis following cerebral infarction affecting right dominant side (principal); N17.9 Acute kidney failure, unspecified; N39.0 Urinary tract infection, site not specified; I69.322 Dysarthria following cerebral infarction; N18.9 Chronic kidney disease, unspecified; I12.9 Hypertensive chronic kidney disease with stage 1 through stage 4 chronic kidney disease, or unspecified chronic kidney disease; I69.392 Facial weakness following cerebral infarction; E11.22 Type 2 diabetes mellitus with diabetic chronic kidney disease; L40.9 Psoriasis, unspecified; G51.0 Bell's palsy; R47.81 Slurred speech; Z79.891 Long term (current) use of opiate analgesic; Z79.82 Long term (current) use of aspirin; Z79.4 Long term (current) use of insulin
CPT/HCPCS: 99222-AI; 99231-AI; 99232-AI; 99239; J0696; J1644; J7030

== ENCOUNTER → 2021-01-19 | Outpatient (RCR) | payer BC ==
[~2021-01-19] MED LIST changes: +COREG12.5 MG PO; +FLONASE NASAL S16 GM NS; +TYLENOL 325MG325 MG PO; +ZESTRIL 10MG10 MG PO
== END ==
LOC: MKS.ESL.OT → MKS.ESL.PT 10-21 14:30 → WSST 10-26 14:30 → MKS.ESL.PT 10-28 08:00 → WSST 11-08 14:30 → MKS.ESL.OT 11-10 15:15 → WSST 11-15 14:30 → MKS.ESL.OT 11-17 14:15 → MKS.ESL.PT 11-21 14:45 → MKS.ESL.OT 11-23 15:30 → MKS.ESL.PT 11-24 14:30 → WSST 11-29 14:30 → MKS.ESL.PT 12-29 14:15 → WSST 01-03 14:30 → MKS.ESL.PT 01-10 15:00 → MKS.ESL.OT 01-17 16:00
DX: I63.9 Cerebral infarction, unspecified (principal); G81.91 Hemiplegia, unspecified affecting right dominant side

== ENCOUNTER 2021-04-21 13:45 | Outpatient (RCR) | payer BC | END 2021-04-24 | disposition home or self-care (01) | LOC: MKS.ESL.OT | DX: I12.9 Hypertensive chronic kidney disease with stage 1 through stage 4 chronic kidney disease, or unspecified chronic kidney disease (principal); E11.22 Type 2 diabetes mellitus with diabetic chronic kidney disease; N18.30 Chronic kidney disease, stage 3 unspecified; I63.9 Cerebral infarction, unspecified; G51.0 Bell's palsy; L40.9 Psoriasis, unspecified; G43.909 Migraine, unspecified, not intractable, without status migrainosus ==

== ENCOUNTER 2021-07-07 13:00 | Outpatient (RCR) | payer BC | END 2021-07-26 | disposition home or self-care (01) | LOC: MKS.ESL.OT | DX: I69.351 Hemiplegia and hemiparesis following cerebral infarction affecting right dominant side (principal) ==

== ENCOUNTER → 2021-10-16 | Outpatient (RCR) | payer OTHER | END | disposition still patient (30) | LOC: MKS.ESL.OT | DX: I69.351 Hemiplegia and hemiparesis following cerebral infarction affecting right dominant side (principal) ==

== ENCOUNTER 2021-11-13 14:00 | Outpatient (RCR) | payer OTHER | END 2021-11-16 | disposition home or self-care (01) | LOC: MKS.ESL.OT | DX: G81.91 Hemiplegia, unspecified affecting right dominant side (principal); Z86.73 Personal history of transient ischemic attack (TIA), and cerebral infarction without residual deficits ==

== ENCOUNTER 2021-12-13 13:00 | Outpatient (RCR) | payer OTHER | END 2021-12-16 | disposition home or self-care (01) | LOC: MKS.ESL.OT | DX: I69.351 Hemiplegia and hemiparesis following cerebral infarction affecting right dominant side (principal) ==

== ENCOUNTER 2022-01-08 13:00 | Outpatient (RCR) | payer OTHER | END 2022-01-16 | disposition home or self-care (01) | LOC: MKS.ESL.OT | DX: I69.351 Hemiplegia and hemiparesis following cerebral infarction affecting right dominant side (principal) ==

== ENCOUNTER 2022-02-09 13:00 | Outpatient (RCR) | payer OTHER | END 2022-02-15 | disposition home or self-care (01) | LOC: MKS.ESL.OT | DX: I69.351 Hemiplegia and hemiparesis following cerebral infarction affecting right dominant side (principal) ==

== ENCOUNTER 2022-03-16 13:00 | Outpatient (RCR) | payer OTHER | END 2022-03-18 | disposition home or self-care (01) | LOC: MKS.ESL.OT | DX: I69.351 Hemiplegia and hemiparesis following cerebral infarction affecting right dominant side (principal); I63.81 Other cerebral infarction due to occlusion or stenosis of small artery ==

== ENCOUNTER → 2022-04-18 | Outpatient (RCR) | payer OTHER | END | disposition home or self-care (01) | LOC: MKS.ESL.OT | DX: I69.351 Hemiplegia and hemiparesis following cerebral infarction affecting right dominant side (principal) ==

== ENCOUNTER 2022-06-13 13:00 | Outpatient (RCR) | payer OTHER | END 2022-06-18 | disposition home or self-care (01) | LOC: MKS.ESL.OT | DX: I69.351 Hemiplegia and hemiparesis following cerebral infarction affecting right dominant side (principal) ==

== ENCOUNTER 2022-10-10 13:00 | Outpatient (RCR) | payer OTHER ==
[~2022-10-10 13:00] MED LIST changes: +CATAPRES 0.1MG0.1 MG PO; +HYDRALAZINE HC100 MG PO; +NOVOLOG 100U100 U/M1 SQ; +PRINIVIL20 MG PO; +VTAMINC250TA PO
== END 2022-10-16 | disposition home or self-care (01) ==
LOC: MKS.ESL.OT
DX: I69.351 Hemiplegia and hemiparesis following cerebral infarction affecting right dominant side (principal)

== ENCOUNTER 2022-11-14 13:00 | Outpatient (RCR) | payer OTHER, MEDICARE | END 2022-11-16 | disposition home or self-care (01) | LOC: MKS.ESL.OT | DX: I69.351 Hemiplegia and hemiparesis following cerebral infarction affecting right dominant side (principal) ==

== ENCOUNTER 2022-12-12 13:00 | Outpatient (RCR) | payer OTHER, MEDICARE | END 2022-12-16 | disposition home or self-care (01) | LOC: MKS.ESL.OT | DX: I69.351 Hemiplegia and hemiparesis following cerebral infarction affecting right dominant side (principal) ==

== ENCOUNTER 2023-04-17 13:00 | Outpatient (RCR) | payer OTHER, MEDICARE ==
[~2023-04-17 13:00] MED LIST changes: +AURYXIA1 GM PO; +COLACE 100100 MG/CAP PO; +FERROUS SU325 MG/TAB PO; +FLONASEALLERGY NS; +VITAMIN C500 MG PO; +VITAMIN D31000 I1 PO; +ZINC SULFATE 1566 MG PO
== END 2023-04-18 | disposition home or self-care (01) ==
LOC: MKS.ESL.OT
DX: I69.351 Hemiplegia and hemiparesis following cerebral infarction affecting right dominant side (principal); I12.9 Hypertensive chronic kidney disease with stage 1 through stage 4 chronic kidney disease, or unspecified chronic kidney disease; N18.9 Chronic kidney disease, unspecified; R60.0 Localized edema

== ENCOUNTER 2023-05-15 13:00 | Outpatient (RCR) | payer OTHER, MEDICARE | END 2023-05-18 | disposition home or self-care (01) | LOC: MKS.ESL.OT | DX: I69.351 Hemiplegia and hemiparesis following cerebral infarction affecting right dominant side (principal) ==

== ENCOUNTER 2023-08-14 13:00 | Outpatient (RCR) | payer OTHER, MEDICARE | END 2023-08-18 | disposition home or self-care (01) | LOC: MKS.ESL.OT | DX: I69.351 Hemiplegia and hemiparesis following cerebral infarction affecting right dominant side (principal); R60.0 Localized edema ==

== ENCOUNTER → 2023-09-18 | Outpatient (RCR) | payer OTHER, MEDICARE | LOC: MKS.ESL.OT | DX: I69.351 Hemiplegia and hemiparesis following cerebral infarction affecting right dominant side (principal) ==

== ENCOUNTER 2023-11-13 13:00 | Outpatient (RCR) | payer OTHER, MEDICARE | END 2023-11-17 | disposition home or self-care (01) | LOC: MKS.ESL.OT | DX: I69.351 Hemiplegia and hemiparesis following cerebral infarction affecting right dominant side (principal) ==

== ENCOUNTER 2024-04-13 19:42 | Inpatient (IN) | payer MEDICARE, OTHER ==
[~2024-04-13] VITALS: Ht 188 cm; Wt 95.6 kg
[2024-04-13] MEDS ORDERED: NS 1,000 ML IV ONE (20:00)
[2024-04-13] MEDS ORDERED: Ondansetron 4 MG/2 ML VIAL IV ONE (20:00)
[2024-04-13 20:33] LABS: HEMATOCRIT 45.9 % (42.0-52.0); HEMOGLOBIN 14.4 g/dl (13.5-18.0); MEAN CELL VOLUME 87 fl (80.0-100.0); MEAN CORPUSCULAR HEMOGLOBIN 27 pg (27-31); MEAN CORPUSCULAR HGB CONC 31 g/dl (33.0-37.0); MEAN PLATELET VOLUME 9.7 fl (7.4-10.4); PLATELET COUNT 324 K/mm3 (130-400); REDCELL DISTRIBUTION WIDTH-CV 14.6 % (11.5-14.5)
[2024-04-13 20:52] LABS: ALBUMIN 4.7 g/dL (3.4-4.8); BILIRUBIN,TOTAL 0.9 mg/dL (0.2-1.2); C-REACTIVE PROTEIN 0.17 mg/dL (0.00-0.50); CALCIUM 10.5 mg/dL (8.4-10.2); CREATININE, serum 1.39 mg/dL (0.72-1.25); POTASSIUM 3.3 mEq/L (3.5-4.5); TOTAL PROTEIN 8.3 g/dl (6.2-8.1)
[2024-04-13 20:57] LABS: COLLECTION METHOD CLEAN CATCH
[2024-04-13] MEDS ORDERED: fentaNYL 50 MCG/ML 2 ML VIAL IV ONE ×2 (21:00→22:45)
[2024-04-13 21:08] LABS: URINE APPEARANCE CLEAR (CLEAR/HAZY); URINE BLOOD NEGATIVE (NEGATIVE); URINE COLOR YELLOW (YELLOW); URINE GLUCOSE 1+ (NEGATIVE); URINE KETONE 1+ (NEGATIVE); URINE NITRATE NEGATIVE (NEGATIVE); URINE PROTEIN(semi-quant) 2+ (NEGATIVE); URINE UROBILINOGEN 0.2 E.U/dL (0.2-1.0)
[2024-04-13 21:17] LABS: BAND 8 % (0-10); EOSINOPHIL 2 % (0-4); LYMPHOCYTE 18 % (20.0-51.0); NEUTROPHILS 66 % (42.0-75.2)
[2024-04-13] MEDS ORDERED: hydrALAZINE 20 MG/ML 1 ML VIAL IV ONE (21:30)
[2024-04-13] MEDS ORDERED: 1/2 NS & 20 mEq KCl 1,000 ML IV SCH (23:45)
[2024-04-13] MEDS ORDERED: Ondansetron 4 MG/2 ML VIAL IV PRN (23:45)
[2024-04-13] MEDS ORDERED: Mag/Al Hydrox/Simeth Susp 30 ML CUP PO PRN (23:45)
[2024-04-13] MEDS ORDERED: Acetaminophen 325 MG TAB PO PRN (23:45)
[2024-04-13] MEDS ORDERED: PROGRAF 1MG1 MG PO (23:57)
[2024-04-13] MEDS ORDERED: MYFORTIC180 MG PO (23:58)
[2024-04-13] MEDS ORDERED: PREDNISONE 5MG5 MG PO (23:59)
[2024-04-14] VITALS (17 sets, daily range): BP systolic 132–208; BP diastolic 87–117; PULSE 79–123; TEMP 98.1–99.5
[2024-04-14] MEDS ORDERED: PLAVIX 75MG TAB75 MG PO (00:01)
[2024-04-14] MEDS ORDERED: PROCARDIA XL 6060 MG PO (00:03)
[2024-04-14] MEDS ORDERED: DRISDOL50000 IU PO (00:04)
[2024-04-14] MEDS ORDERED: HUMULIN N PE100 U/ML SQ (00:05)
[2024-04-14] MEDS ORDERED: MIRALAX PA17 GM/Dose PO (00:06)
--- NOTE | 2024-04-14 00:45 | NUR ---
RECEIVED REPORT FROM Daron DAVENPORT, JOSHUA. PATIENT ARRIVAL PENDING TO FLOOR, TO BE ADMITTED TO ROOM 343.
[2024-04-14] MEDS ORDERED: Glucagon 1 MG VIAL IM PRN (01:15)
[2024-04-14] MEDS ORDERED: Dextrose 50% Water 25 GM/50 ML SYRINGE IV PRN (01:15)
[2024-04-14] MEDS ORDERED: Dextrose (Glucose) 15 GM (4 x 3.75 GM) Chewable TABLET PACK PO PRN (01:15)
--- NOTE | 2024-04-14 01:42 | NUR ---
PT ARRIVED FROM ED WITH ED RN AROUND 0125 THIS AM. PT HAS BEEN SETTLED IN ROOM.
--- NOTE | 2024-04-14 01:58 | NUR ---
PATIENT COMPLAINS OF ABD PAIN AND NAUSEA, SEE MAR FOR COMPAZINE IV GIVEN. PATIENT DENIES CHEST PAIN/SHORTNESS OF BREATHE CURRENTLY DENIES URGE TO VOID AT THIS TIME. INITIALLY REPORTED HAVING COMPLAINTS OF CHILLS THAT HAS SUBSIDED SINCE ADMIT TO ROOM 343. OBSERVED TELE IN PLACE. ADDITIONAL VS TAKEN SINCE ADMIT TO ROOM WITH BP STILL ELEVATED WITH HEART RATE IN THE 110'S TO 120'S.
--- NOTE | 2024-04-14 02:15 | NUR ---
INFORMED ONCALL PROVIDER OF PATIENT CONTINUED ELEVATED BP AND HEART RATE. OK GIVEN TO GIVE ADDITIONAL LABETALOL AND INFORMED OF FSBS TAKEN AT 163 WITH NO ADDITIONAL ORDERS FOR MEDS TO BE GIVEN AT THIS TIME. PATIENT REPORTS SOME LESSENING OF NAUSEA COMPLAINTS AFTER COMPAZINE GIVEN. CONTINUES TO DENIES CHEST PAIN/SHORTNESS OF BREATHE CURRENTLY. IV FLUIDS INFUSING FOR LAC IV SITE.
--- NOTE | 2024-04-14 02:24 | NUR ---
IV LABETALOL GIVEN FOR CONTINUED ELEVATED SBP. SEE MAR.
--- NOTE | 2024-04-14 02:40 | NUR ---
PATIENT COMPLAINS OF LEVEL 7/10 ABD PAIN AND STATES DOES NOT THINK ORAL TYLENOL WITH HELP. INFORMED ONCALL PROVIDER PATIENT'S REQUEST. PROVIDER TO ENTER ORDERS FOR PAIN MEDS, SEE scanR FOR ORDERS
[2024-04-14] MEDS ORDERED: fentaNYL 50 MCG/ML 2 ML VIAL IV PRN (02:45)
--- NOTE | 2024-04-14 03:33 | NUR ---
BP RECHECKED AT 193/105, HR 114, T99.5, RESP 20, PROVIDER TO ENTER ORDERS FOR APRESALINE, SEE [facility] FOR ORDERS. PATIENT REPORTS AFTER FENTANYL GIVEN, PAIN LEVEL DECREASED FROM 7/10 TO 5/10. PATIENT CONTINUES TO DENY CHEST PAIN/SHORTNESS OF BREATH. IV FLUIDS INFUSING PER IV SITE TO LAC. DENIES CHILLS WELL.
[2024-04-14] MEDS ORDERED: hydrALAZINE 20 MG/ML 1 ML VIAL IV PRN (03:45)
--- NOTE | 2024-04-14 03:49 | NUR ---
SEE MAR FOR HYDRAZALINE IV GIVEN FOR CONTINUED ELEVATED BP, AFTER PROVIDER INFORMED OF PATIENT'S VS, CURRENT STATUS.
--- NOTE | 2024-04-14 04:53 | NUR ---
PATIENT REPORTS PAIN LEVEL HAS INCREASED BACK TO 6-7/10, INFORMED PROVIDER OF CURRENTLY VS OF 177/104 WITH HR OF 121-124. PATIENT DENIES CHEST PAIN/SHORTNESS OF AIR AND DENIES NAUSEA BUT CONTINUES TO HAVE ABD PAIN. INFORMED THAT PATIENT IS VOIDING WITHOUT PROBLEMS.
[2024-04-14] MEDS ORDERED: fentaNYL 50 MCG/ML 2 ML VIAL IV ONE (05:00)
[2024-04-14] MEDS ORDERED: Metoprolol Tartrate 5 MG/5 ML VIAL IV ONE (05:00)
--- NOTE | 2024-04-14 05:00 | NUR ---
IV RATE DECREASED FROM 75 TO 50 ML/HR PER D.O.
--- NOTE | 2024-04-14 05:16 | NUR ---
APPLIED ICE PACK TO ABD FOR COMFORT THAT PATIENT WAS UNABLE TO TOLERATE, PATIENT REMOVED ICE PACK, WAS GIVEN IV PAIN MEDS SEE MAR.
[2024-04-14 06:52] LABS: HEMATOCRIT 47.1 % (42.0-52.0); HEMOGLOBIN 14.9 g/dl (13.5-18.0); MEAN CELL VOLUME 87 fl (80.0-100.0); MEAN CORPUSCULAR HEMOGLOBIN 27 pg (27-31); MEAN CORPUSCULAR HGB CONC 32 g/dl (33.0-37.0); MEAN PLATELET VOLUME 10.2 fl (7.4-10.4); PLATELET COUNT 341 K/mm3 (130-400); RED BLOOD COUNT 5.43 M/mm3 (4.20-5.60); REDCELL DISTRIBUTION WIDTH-CV 14.7 % (11.5-14.5)
--- NOTE | 2024-04-14 07:03 | NUR ---
CHANGE OF SHIFT REPORT GIVEN TO DAY SHIFT NURSESTEPHIE. PATIENT SITTING UP AT SIDE OF BED, REPORTED WANTING LIQUIDS TO DRINK. IV FLUIDS INFUSING WITH NO PROBLEMS. TELE IN PLACE.
[2024-04-14 07:06] LABS: CALCIUM 10.3 mg/dL (8.4-10.2); CREATININE, serum 1.44 mg/dL (0.72-1.25); POTASSIUM 3.7 mEq/L (3.5-4.5)
[2024-04-14] MEDS ORDERED: OZEMPIC1 MG/0.71 SQ (07:51)
[2024-04-14] MEDS ORDERED: Carvedilol 25 MG TAB PO SCH (08:00)
[2024-04-14] MEDS ORDERED: Insulin Lispro (HumaLOG) SQ SCH (08:00)
--- NOTE | 2024-04-14 08:00 | NUR ---
Pt. sitting up in bed. Pt. is A&OX3, assessment complete. IV to lt. ac patent. Pt. reports abd is achy from retching. Pt. also reports that he still feels somewhat quizy. Giving meds per orders. Pt. denies further needs.
[2024-04-14 08:13] LABS: BAND 1 % (0-10); LYMPHOCYTE 10 % (20.0-51.0); NEUTROPHILS 81 % (42.0-75.2); PLATELET ESTIMATE NORMAL (NORMAL)
[2024-04-14 08:14] LABS: HYPOCHROMIA 1+
--- NOTE | 2024-04-14 08:35 | NUR ---
Pt.'s BP elevated, Dr. Santana notified, meds given per orders.
[2024-04-14] MEDS ORDERED: Mycophenolate DR 180 MG TAB PO SCH ×2 (09:00→21:00)
[2024-04-14] MEDS ORDERED: Pantoprazole 40 MG in NS 10 ML IV SCH (09:00)
[2024-04-14] MEDS ORDERED: predniSONE 5 MG TAB PO SCH (09:00)
[2024-04-14] MEDS ORDERED: Clopidogrel 75 MG TAB PO SCH (09:00)
[2024-04-14] MEDS ORDERED: Tacrolimus 1 MG CAP PO SCH ×2 (09:00)
[2024-04-14] MEDS ORDERED: Sennosides/Docusate 8.6-50 MG TAB PO SCH (09:00)
[2024-04-14] MEDS ORDERED: NIFEdipine XL 60 MG TAB PO SCH (09:00)
[2024-04-14] MEDS ORDERED: Heparin 5,000 UNITS/ML 1 ML VIAL SQ SCH (09:00)
[2024-04-14] MEDS ORDERED: cloNIDine 0.1 MG TAB PO SCH ×2 (10:30→21:00)
--- NOTE | 2024-04-14 10:30 | NUR ---
Pt.'s BP still elevated. Dr. Santana notified, meds given per orders.
[2024-04-14] MEDS ORDERED: CATAPRES 0.1MG0.1 MG PO (10:57)
[2024-04-14] MEDS ORDERED: 1/2 NS 1,000 ML IV SCH (11:00)
[2024-04-14] MEDS ORDERED: predniSONE 5 MG TAB PO ONE (11:15)
[2024-04-14] MEDS ORDERED: Mycophenolate DR 180 MG TAB PO ONE (11:30)
--- NOTE | 2024-04-14 12:10 | NUR ---
Pt. continues to have elevated BP, Dr. Santana notified. Meds given per orders.
[2024-04-14] MEDS ORDERED: cloNIDine 0.1 MG TAB PO ONE (12:15)
--- NOTE | 2024-04-14 12:43 | NUR ---
D: Automatic Operator stopped by room on rounds. A: Pt was resting and content with in the room. Pt has no needs right now. P: Automatic Operator informed pt that is he needed anything from the insulation packer area to let his nurse know. Automatic Operator will follow up as needed.
--- NOTE | 2024-04-14 13:50 | NUR ---
Pt. continues to have elevated BP's. Dr. Santana notified. BP taken on other arm with slight improvement.
--- NOTE | 2024-04-14 16:07 | NUR ---
runner worker met with patient and patient's , Filomena, P# [phone], to discuss discharge planning. PCP is Dr. Lomeli, Pharmacy is [email or web address]. No issues affording medications. Insurance is Medicare A and B and [place]. DPOA-HC is Filomena Looney. No DME. Patient reports she is independent with ADLS. Patient would like to return home at time of discharge. Discharge plan: Home
[2024-04-14] MEDS ORDERED: Atorvastatin 40 MG TAB PO SCH (21:00)
--- NOTE | 2024-04-14 22:55 | NUR ---
Patient assessed around 2119. Alert and oriented, and able to make needs known. Denies having pain and discomfort. Peripheral IV to left AC, IV fluids running per orders. Denies SOB and dyspnea. LS CTA. HRR. Telemetry in place. BSAx4. Denies nausea and upset stomach. No edema. Voices no questions, needs, or concerns at this time. In bed with call light within reach.
[2024-04-15] VITALS (12 sets, daily range): BP systolic 118–156; BP diastolic 80–95; PULSE 75–85; TEMP 97.5–98.2
[2024-04-15] MEDS ORDERED: 1/2 NS 1,000 ML IV SCH (03:45)
--- NOTE | 2024-04-15 06:10 | NUR ---
Continues on IV fluids per orders. Voices no questions, needs, or concerns at this time. In bed with call light within reach. Has not needed any PRN BP medications this shift.
[2024-04-15 06:23] LABS: HEMATOCRIT 42.9 % (42.0-52.0); HEMOGLOBIN 13.6 g/dl (13.5-18.0); MEAN CELL VOLUME 86 fl (80.0-100.0); MEAN CORPUSCULAR HEMOGLOBIN 27 pg (27-31); MEAN CORPUSCULAR HGB CONC 32 g/dl (33.0-37.0); MEAN PLATELET VOLUME 9.6 fl (7.4-10.4); PLATELET COUNT 296 K/mm3 (130-400); RED BLOOD COUNT 4.97 M/mm3 (4.20-5.60); REDCELL DISTRIBUTION WIDTH-CV 14.7 % (11.5-14.5)
[2024-04-15 06:43] LABS: CALCIUM 9.2 mg/dL (8.4-10.2); CREATININE, serum 1.6 mg/dL (0.72-1.25); POTASSIUM 3.6 mEq/L (3.5-4.5)
[2024-04-15 07:18] LABS: EOSINOPHIL 3 % (0-4); LYMPHOCYTE 25 % (20.0-51.0); NEUTROPHILS 63 % (42.0-75.2); PLATELET ESTIMATE NORMAL (NORMAL)
[2024-04-15 07:19] LABS: SCHISTOCYTES 1+
[2024-04-15] MEDS ORDERED: predniSONE 10 MG TAB PO SCH (08:00)
--- NOTE | 2024-04-15 08:30 | NUR ---
Pt. sitting up in bed. Pt. is A&OX3, assessment complete. IV to lt. ac patent, IV fluids infusing per orders. Pt. denies pain or other needs, call light within reach.
[2024-04-15 15:29] LABS: CREATININE, serum 1.75 mg/dL (0.72-1.25); POTASSIUM 3.8 mEq/L (3.5-4.5)
--- NOTE | 2024-04-15 17:25 | NUR ---
Patient resting in chair, watching TV. Getting fluids per orders. Telemetry in place. Tachycardic. Wondering when he will go home. Updated about lab results. Assessment completed. No furthert needs at this time. Call light within reach.
--- NOTE | 2024-04-15 21:00 | NUR ---
PT A&O X3 LAYING IN BED. VSS, PT ON TELE NSR. SHIFT ASSESSMENT & HS MEDS COMPLETE. PT DENYING PAIN OR N/V. IVF INFUSING TO LEFT AC. PT DENYING FURTHER NEEDS. CALL LIGHT IN REACH
--- NOTE | 2024-04-15 22:50 | NUR ---
GAVE PRN TYLENOL PER MAR FOR LEFT SHOULDER PAIN. PT IV TO LEFT AC LEAKING, D/C'D. 22G TO LEFT FOREARM STARTED & 1/2 NS AT 150MLS/HR INFUSING.
[2024-04-16 00:23] VITALS: BP 143/98; PULSE 77; TEMP 98.1
[2024-04-16 01:06] VITALS: BP_SYST 143
[2024-04-16 04:13] VITALS: BP 161/82; PULSE 77; TEMP 98.2
[2024-04-16 04:16] VITALS: BP_SYST 161
--- NOTE | 2024-04-16 06:18 | NUR ---
PT RESTING IN BED WITH UNLABORED RESP & CALL LIGHT IN REACH
[2024-04-16 06:34] LABS: HEMATOCRIT 38.7 % (42.0-52.0); HEMOGLOBIN 12.2 g/dl (13.5-18.0); MEAN CELL VOLUME 87 fl (80.0-100.0); MEAN CORPUSCULAR HEMOGLOBIN 27 pg (27-31); MEAN CORPUSCULAR HGB CONC 32 g/dl (33.0-37.0); MEAN PLATELET VOLUME 10.2 fl (7.4-10.4); PLATELET COUNT 300 K/mm3 (130-400); RED BLOOD COUNT 4.46 M/mm3 (4.20-5.60); REDCELL DISTRIBUTION WIDTH-CV 14.5 % (11.5-14.5)
[2024-04-16 06:50] LABS: CALCIUM 8.9 mg/dL (8.4-10.2); CREATININE, serum 1.53 mg/dL (0.72-1.25); POTASSIUM 3.4 mEq/L (3.5-4.5)
[2024-04-16 07:22] LABS: EOSINOPHIL 3 % (0-4); LYMPHOCYTE 29 % (20.0-51.0); NEUTROPHILS 60 % (42.0-75.2); PLATELET ESTIMATE NORMAL (NORMAL)
[2024-04-16 07:23] VITALS: BP 166/98; PULSE 82; TEMP 98.2
[2024-04-16 08:00] VITALS: BP_SYST 166
--- NOTE | 2024-04-16 08:30 | NUR ---
PATIENT SITTING UP IN RECLINER. ALERT AND ORIENTED. SHIFT ASSESSMENT COMPLETE. PATIENT STATES HE IS CONCERNED ABOUT CREAT LEVEL TODAY. THIS RN INFORMED PATIENT THAT CREAT DECREASED TO 1.53. PATIENT NOW IN GOOD SPIRITS. DENIES PAIN OR DISCOMFORT. ALL NEEDS MET AT THIS VISIT. CALL MONITOR. WILL MONITOR
[2024-04-16] MEDS ORDERED: CATAPRES 0.1MG0.1 MG PO (09:43)
--- NOTE | 2024-04-16 11:20 | NUR ---
THIS RN PROVIDED PATIENT WITH DISCHARGE EDUCATION AND INSTRUCTIONS. ALL QUESTIONS ANSWERED.
--- NOTE | 2024-04-16 11:30 | NUR ---
PATIENT ESCORTED OFF UNIT BY THIS RN. ALL BELONGINGS WITH PATIENT.
== END 2024-04-16 11:30 | disposition home or self-care (01) | DRG 918 ==
LOC: COL.ER 19:42 → SURG 22:35
PROVIDERS: Emergency Medicine; Physician Assistant; ADMIT Internal Medicine
DX: T38.3X5A Adverse effect of insulin and oral hypoglycemic [antidiabetic] drugs, initial encounter (principal); Z94.0 Kidney transplant status; N17.9 Acute kidney failure, unspecified; I10 Essential (primary) hypertension; E11.9 Type 2 diabetes mellitus without complications; E78.5 Hyperlipidemia, unspecified; E86.0 Dehydration; Z79.4 Long term (current) use of insulin; Z79.82 Long term (current) use of aspirin; Z79.891 Long term (current) use of opiate analgesic; Z79.02 Long term (current) use of antithrombotics/antiplatelets; Z86.73 Personal history of transient ischemic attack (TIA), and cerebral infarction without residual deficits; Z88.8 Allergy status to other drugs, medicaments and biological substances
CPT/HCPCS: G0378; J0360; J0780; J1815; J1920; J2405; J2470; J3010; J3480; J7030; J7507; J7512; J7518